=== PATIENT | male | born 1960 | race Caucasian/White ===

== ENCOUNTER 2019-07-24 07:03 | Day surgery (SDC) | payer OTHER ==
[~2019-07-24] VITALS: Ht 188 cm; Wt 114.3 kg
[~2019-07-24 07:03] MED LIST: BUPR300T34 PO; LISI10TA4 PO; NS 1,000 ML IV ONE
[2019-07-24] MEDS ORDERED: PROPOFOL 200 MG/20 ML VIAL As Ordered ONE ×3 (07:41→08:08)
--- NOTE | 2019-07-24 08:18 | ROOR ---
Patient Name: Mat Contreras Procedure Date: 07/24/2019 7:35 AM Date of : 1960 Age: 58 Room: [facility] Gender: Male Note Status: Finalized Procedure: Colonoscopy Indications: Screening for colorectal malignant neoplasm Providers: Nishant Meyers MD Referring MD: Patricia Parra DO Requesting Provider: Medicines: Monitored Anesthesia Care Complications: No immediate complications. Procedure: Pre-Anesthesia Assessment: - Prior to the procedure, a History and Physical was performed, and patient medications and allergies were reviewed. The patient is competent. The risks and benefits of the procedure and the sedation options and risks were discussed with the patient. All questions were answered and informed consent was obtained. Patient identification and proposed procedure were verified by the physician, the nurse and the anesthesiologist in the endoscopy suite. Mental Status Examination: alert and oriented. Airway Examination: normal oropharyngeal airway and neck mobility. Respiratory Examination: clear to auscultation. CV Examination: normal. Prophylactic Antibiotics: The patient does not require prophylactic antibiotics. Prior Anticoagulants: The patient has taken no previous anticoagulant or antiplatelet agents. ASA Grade Assessment: II - A patient with mild systemic disease. After reviewing the risks and benefits, the patient was deemed in satisfactory condition to undergo the procedure. The anesthesia plan was to use monitored anesthesia care (MAC). Immediately prior to administration of medications, the patient was re-assessed for adequacy to receive sedatives. The heart rate, respiratory rate, oxygen saturations, blood pressure, adequacy of pulmonary ventilation, and response to care were monitored throughout the procedure. The physical status of the patient was re-assessed after the procedure. The Colonoscope was introduced through the anus and advanced to the cecum, identified by appendiceal orifice and ileocecal valve. The colonoscopy was performed without difficulty. The patient tolerated the procedure well. The quality of the bowel preparation was good. Findings: The perianal and digital rectal examinations were normal. Four sessile polyps were found in the hepatic flexure and ascending colon. The polyps were diminutive in size. These polyps were removed with a cold snare. Resection and retrieval were complete. Estimated blood loss was minimal. Three sessile polyps were found in the transverse colon. The polyps were diminutive in size. These polyps were removed with a cold snare. Resection and retrieval were complete. Estimated blood loss was minimal. The retroflexed view of the distal rectum and anal verge was normal and showed no anal or rectal abnormalities. Impression: - Four diminutive polyps at the hepatic flexure and in the ascending colon, removed with a cold snare. Resected and retrieved. - Three diminutive polyps in the transverse colon, removed with a cold snare. Resected and retrieved. - The distal rectum and anal verge are normal on retroflexion view. Recommendation: - Discharge patient to home (ambulatory). - Repeat colonoscopy in 3 years for surveillance. Nishant Meyers MD Nishant Meyers MD 07/24/2019 8:17:47 AM Electronically signed by Nishant Meyers MD Number of Addenda: 0 Note Initiated On: 07/24/2019 7:35 AM Estimated Blood Loss: Estimated blood loss was minimal.
[2019-07-24 08:30] VITALS: BP 103/61
[2019-07-24] MEDS ORDERED: CETACAINE SPRAY 5GM As Ordered ONE (08:55)
== END 2019-07-24 08:42 | disposition home or self-care (01) ==
LOC: M OPP 07:03
PROVIDERS: ATTEND Surgery
DX: Z12.11 Encounter for screening for malignant neoplasm of colon (principal); D12.3 Benign neoplasm of transverse colon; D12.2 Benign neoplasm of ascending colon; K21.9 Gastro-esophageal reflux disease without esophagitis; S30.860D Insect bite (nonvenomous) of lower back and pelvis, subsequent encounter; I71.4 Abdominal aortic aneurysm, without rupture; I34.0 Nonrheumatic mitral (valve) insufficiency; F17.210 Nicotine dependence, cigarettes, uncomplicated; F12.10 Cannabis abuse, uncomplicated; Z79.899 Other long term (current) drug therapy

== ENCOUNTER 2022-05-07 09:32 | Emergency (ER) | payer OTHER ==
[~2022-05-07] VITALS: Ht 188 cm; Wt 107.1 kg
[~2022-05-07 09:32] MED LIST changes: -BUPR300T34 PO; +BUPR300T92 PO; +LISI10TA22 PO; -LISI10TA4 PO; -NS 1,000 ML IV ONE
[2022-05-07] MEDS ORDERED: CITA20TA7 (09:44)
[2022-05-07 14:17] VITALS: BP 136/77
== END 2022-05-07 14:39 | disposition home or self-care (01) ==
LOC: M ED 09:32
DX: S90.32XA Contusion of left foot, initial encounter (principal); W22.8XXA Striking against or struck by other objects, initial encounter; I10 Essential (primary) hypertension; F17.200 Nicotine dependence, unspecified, uncomplicated; Z79.811 Long term (current) use of aromatase inhibitors; Y92.009 Unspecified place in unspecified non-institutional (private) residence as the place of occurrence of the external cause; Y93.9 Activity, unspecified; Y99.9 Unspecified external cause status

== ENCOUNTER 2022-08-31 13:49 | Emergency (ER) | payer OTHER ==
[~2022-08-31] VITALS: Ht 188 cm; Wt 109.1 kg
[~2022-08-31 13:49] MED LIST changes: +CITA20TA7
[2022-08-31] MEDS ORDERED: ONDANSETRON 4MG 2ML VIAL IV ONE (14:00)
[2022-08-31] MEDS: MORPHINE 4 MG/ML 1ML VIAL IV PRN ×2 (14:19→15:13)
[2022-08-31 14:20] LABS: VENOUS BASE EXCESS -3.6 (-2.0-2.0); VENOUS HCO3 23.5 MEQ/L (23.0-27.0); VENOUS O2 SATURATION 65.2 % (60.0-80.0); VENOUS PARTIAL PRESSURE CO2 51.1 mmHg (38.0-50.0); VENOUS PARTIAL PRESSURE O2 36.9 mmHg (30.0-50.0); VENOUS PH 7.281 UNITS (7.330-7.430); VENOUS STANDARD HCO3 20.8 MEQ/L; VENOUS TOTAL CO2 25.1 MEQ/L (24.0-28.0)
[2022-08-31 14:41] LABS: BASO # 0.1 10^3/uL (0.0-0.2); BASO % 0.4 % (0.0-1.0); EOS # 0.1 10^3/uL (0.0-0.5); EOS % 0.3 % (0.0-3.0); HEMATOCRIT 35.9 % (42.0-52.0); HEMOGLOBIN 12.2 g/dl (13.5-17.5); LYMPH # 1.8 10^3/uL (1.5-5.0); LYMPH % 8.5 % (24.0-44.0); MEAN CORPUSCULAR HEMOGLOBIN 37.8 pg (27.0-33.0); MEAN CORPUSCULAR VOLUME 111.1 fl (80.0-96.0); MONO # 1.3 10^3/uL (0.0-0.8); MONO % 6.4 % (2.0-8.0); NEUTROPHILS # 17.2 10^3/uL (1.5-8.5); NEUTROPHILS % 82.1 % (36.0-66.0); PLATELET COUNT, AUTOMATED 143 10^3/uL (150-450); RED BLOOD COUNT 3.23 10^6/uL (4.30-6.10); WHITE BLOOD COUNT 20.9 10^3/uL (4.0-10.0)
[2022-08-31 14:49] LABS: BILIRUBIN,DIRECT 0.2 MG/DL (<0.4); INR 1.17; PROTHROMBIN TIME 15.1 SECONDS (12.5-14.5)
[2022-08-31 14:50] LABS: PARTIAL THROMBOPLASTIN TIME 27.3 SECONDS (24.8-34.2)
[2022-08-31 14:52] LABS: ALBUMIN 3.6 G/DL (3.2-5.2); BILIRUBIN,TOTAL 0.5 MG/DL (0.3-1.2); TOTAL PROTEIN 6.6 G/DL (5.7-8.2)
[2022-08-31] MEDS ORDERED: ISOVUE-370 76% 100ML VIAL As Ordered ONE (15:22)
[2022-08-31] MEDS: HYDROMORPHONE HCL 0.5 MG/ 0.5 ML SYRINGE (J1170 PER 1) IV PRN ×2 (16:11→17:21)
[2022-08-31 17:20] VITALS: BP 127/66
[2022-08-31 17:27] LABS: RSV AMPLIFICATION NEGATIVE (NEGATIVE)
== END 2022-08-31 17:35 | disposition short-term general hospital (02) ==
LOC: M ED 13:49
DX: S52.352A Displaced comminuted fracture of shaft of radius, left arm, initial encounter for closed fracture (principal); S32.502A Unspecified fracture of left pubis, initial encounter for closed fracture; S22.43XA Multiple fractures of ribs, bilateral, initial encounter for closed fracture; M47.812 Spondylosis without myelopathy or radiculopathy, cervical region; J93.9 Pneumothorax, unspecified; J90 Pleural effusion, not elsewhere classified; I49.3 Ventricular premature depolarization; I25.2 Old myocardial infarction; I10 Essential (primary) hypertension; W11.XXXA Fall on and from ladder, initial encounter; Z79.811 Long term (current) use of aromatase inhibitors; Z79.899 Other long term (current) drug therapy
CPT/HCPCS: 70450; 71045; 71260; 72125; 72170; 73110; 73502; 74177; 80047; 80076; 82150; 82803; 83690; 85025; 85610; 85730; 86850; 86900; 86901; 87631; 93005; 93041; 94760; 96374; 96375; 96376; 99285; J1170; J2270; J2405

== ENCOUNTER 2023-02-01 09:29 | Day surgery (SDC) | payer OTHER ==
[~2023-02-01] VITALS: Ht 188 cm; Wt 62.1 kg
[~2023-02-01 09:29] MED LIST changes: +AMIO200T49 PO; +ASPI-226 PO; -CITA20TA7; +CITA20TA7 PO; +FAMO40TA3 PO; +LISI5TAB11 PO; +NS 1,000 ML IV ONE; +TAMS1CAP17 PO
[2023-02-01] MEDS ORDERED: propofoL 200 MG/20 ML VIAL As Ordered ONE ×3 (10:19→10:52)
[2023-02-01 11:27] VITALS: BP 113/70
== END 2023-02-01 11:38 | disposition home or self-care (01) ==
LOC: M OPP 09:29
PROVIDERS: ATTEND Surgery
DX: Z12.11 Encounter for screening for malignant neoplasm of colon (principal); Z86.010 Personal history of colon polyps; D12.6 Benign neoplasm of colon, unspecified; Z79.82 Long term (current) use of aspirin; Z79.899 Other long term (current) drug therapy; F17.290 Nicotine dependence, other tobacco product, uncomplicated

== ENCOUNTER → 2023-09-07 | Outpatient (CLI) | payer OTHER ==
[~2023-09-07] MED LIST changes: +LIDOCAINE 1% MDV 20ML VIAL As Ordered ONE; +LISI20TA37; -NS 1,000 ML IV ONE
[2023-09-07 12:05] VITALS: TEMP 97.7
[2023-09-07 12:45] LABS: HEMATOCRIT 30.5 % (42.0-52.0); HEMOGLOBIN 10.5 g/dl (13.5-17.5); LYMPH # 0.8 10^3/uL (1.5-5.0); LYMPH % 38.3 % (24.0-44.0); MEAN CORPUSCULAR HEMOGLOBIN 38.9 pg (27.0-33.0); MEAN CORPUSCULAR HGB CONC 34.4 g/dl (32.0-36.5); MONO # 0.3 10^3/uL (0.0-0.8); MONO % 13.8 % (2.0-8.0); NEUTROPHILS % 45.4 % (36.0-66.0)
[2023-09-07 13:07] LABS: NEUTROPHILS # 0.9 10^3/uL (1.5-8.5); PLATELET COUNT, AUTOMATED 29 10^3/uL (150-450)
[2023-09-07 13:10] VITALS: BP 130/74; O2SAT 98
== END ==
LOC: M IRPRO 11:45
PROVIDERS: ATTEND Internal Medicine Hematology & Oncology
DX: D61.818 Other pancytopenia (principal)

== ENCOUNTER 2023-12-31 10:41 | Emergency (ER) | payer MEDICARE, OTHER ==
[2023-12-31] VITALS (7 sets, daily range): BP systolic 105–117; BP diastolic 57–65; TEMP 97.2–99; O2SAT 96–97
[~2023-12-31] VITALS: Ht 188 cm; Wt 109.1 kg
[~2023-12-31 10:41] MED LIST changes: +ACYC1TAB4 PO; +BUPR-597 PO; +BUPR150T12 PO; -BUPR300T92 PO; +FAMO20TA PO; +FLUC200T4 PO; +LEVO1TAB39 PO; -LIDOCAINE 1% MDV 20ML VIAL As Ordered ONE; -LISI20TA37; +LISI20TA37 PO; +NOXA1TAB PO
[2023-12-31 12:39] LABS: HEMATOCRIT 23.9 % (42.0-52.0); LYMPH # 0.8 10^3/uL (1.5-5.0); LYMPH % 57.7 % (24.0-44.0); MEAN CORPUSCULAR HEMOGLOBIN 32.5 pg (27.0-33.0); MEAN CORPUSCULAR HGB CONC 33.5 g/dl (32.0-36.5); MEAN CORPUSCULAR VOLUME 97.2 fl (80.0-96.0); MONO % 2.9 % (2.0-8.0); NEUTROPHILS % 26.3 % (36.0-66.0); RED BLOOD COUNT 2.46 10^6/uL (4.30-6.10); WHITE BLOOD COUNT 1.4 10^3/uL (4.0-10.0)
[2023-12-31 12:46] LABS: NEUTROPHILS # 0.4 10^3/uL (1.5-8.5)
[2023-12-31 12:47] LABS: PLATELET COUNT, AUTOMATED 14 10^3/uL (150-450)
[2023-12-31 12:51] LABS: INR 1.14; PARTIAL THROMBOPLASTIN TIME 25.5 SECONDS (24.8-34.2); PROTHROMBIN TIME 14.3 SECONDS (12.5-14.5)
[2023-12-31 13:00] LABS: BLOOD UREA NITROGEN 13 MG/DL (9-23); CALCIUM LEVEL 8.4 MG/DL (8.3-10.6); CARBON DIOXIDE LEVEL 25 MMOL/L (20-31); CHLORIDE LEVEL 107 MMOL/L (98-107); CREATININE FOR GFR 0.72 MG/DL (0.70-1.30); GLOMERULAR FILTRATION RATE > 60.0 (>49); GLUCOSE, FASTING 91 MG/DL (74-106); POTASSIUM SERUM 4.3 MMOL/L (3.5-5.1); SODIUM LEVEL 140 MMOL/L (136-145)
[2023-12-31] MEDS: diphenhydrAMINE 50MG/ML VIAL IV STA (13:53)
[2023-12-31] MEDS: methylPREDNISolone 40MG 1ML VIAL IV ONE (15:23)
[2024-01-01] MEDS ORDERED: FLUC200T4 PO (07:13)
[2024-01-24] MEDS ORDERED: AUGM125S2 PO (11:53)
[2024-01-24] MEDS ORDERED: NOXA1TAB PO (11:53)
[2024-01-24] MEDS ORDERED: FLOM0.4C39 PO (11:54)
== END 2023-12-31 19:53 | disposition home or self-care (01) ==
LOC: M ED 10:41
DX: D69.6 Thrombocytopenia, unspecified (principal); R04.0 Epistaxis; D46.9 Myelodysplastic syndrome, unspecified; I71.21 Aneurysm of the ascending aorta, without rupture; C18.9 Malignant neoplasm of colon, unspecified; F17.200 Nicotine dependence, unspecified, uncomplicated; Z79.1 Long term (current) use of non-steroidal anti-inflammatories (NSAID); Z79.83 Long term (current) use of bisphosphonates; Z79.899 Other long term (current) drug therapy; Z92.21 Personal history of antineoplastic chemotherapy
CPT/HCPCS: 80048; 85025; 85049; 85055; 85610; 85730; 86850; 86900; 86901; 96374; 96375; 99284; J1200; J2919; P9034

== ENCOUNTER 2024-01-08 17:49 | Emergency (ER) | payer MEDICARE, OTHER ==
[~2024-01-08] VITALS: Ht 188 cm; Wt 1.1 kg
[2024-01-08] MEDS: METOPROLOL 5 MG/5 ML VIAL IV SCH (18:20)
[2024-01-08 18:34] LABS: HEMATOCRIT 26.3 % (42.0-52.0); HEMOGLOBIN 8.8 g/dl (13.5-17.5); LYMPH # 0.2 10^3/uL (1.5-5.0); LYMPH % 34.7 % (24.0-44.0); MEAN CORPUSCULAR HEMOGLOBIN 31.7 pg (27.0-33.0); MEAN CORPUSCULAR HGB CONC 33.5 g/dl (32.0-36.5); MEAN CORPUSCULAR VOLUME 94.6 fl (80.0-96.0); NEUTROPHILS % 51.1 % (36.0-66.0); RED BLOOD COUNT 2.78 10^6/uL (4.30-6.10)
[2024-01-08 18:35] VITALS: BP 111/70
[2024-01-08 18:36] LABS: WHITE BLOOD COUNT 0.5 10^3/uL (4.0-10.0)
[2024-01-08 18:37] LABS: NEUTROPHILS # 0.3 10^3/uL (1.5-8.5); PLATELET COUNT, AUTOMATED 18 10^3/uL (150-450)
[2024-01-08 18:40] VITALS: TEMP 98
[2024-01-08 18:48] LABS: INR 1.18; PARTIAL THROMBOPLASTIN TIME 22.5 SECONDS (24.8-34.2); PROTHROMBIN TIME 14.7 SECONDS (12.5-14.5)
[2024-01-08 19:06] LABS: CPK CREATINE PHOSPHOKINASE < 15 U/L (46-171)
[2024-01-08 19:07] LABS: ALBUMIN 3.3 G/DL (3.2-5.2); ALKALINE PHOSPHATASE 61 U/L (46-116); ALT/SGPT 72 U/L (7.0-40); AST/SGOT 35 U/L (<34); BILIRUBIN,DIRECT 0.4 MG/DL (<0.4); BILIRUBIN,TOTAL 0.7 MG/DL (0.3-1.2); BLOOD UREA NITROGEN 22 MG/DL (9-23); CALCIUM LEVEL 8.7 MG/DL (8.3-10.6); CARBON DIOXIDE LEVEL 22 MMOL/L (20-31); CHLORIDE LEVEL 103 MMOL/L (98-107); CK-MB VALUE MASS < 1.0 NG/ML (<3.6); CREATININE FOR GFR 0.82 MG/DL (0.70-1.30); GLOMERULAR FILTRATION RATE > 60.0 (>49); GLUCOSE, FASTING 329 MG/DL (74-106); POTASSIUM SERUM 4.3 MMOL/L (3.5-5.1); SODIUM LEVEL 138 MMOL/L (136-145); TOTAL PROTEIN 5.6 G/DL (5.7-8.2)
[2024-01-08 19:09] LABS: THYROID STIMULATING HORMONE 0.668 uIU/ML (0.55-4.78)
[2024-01-08 20:16] LABS: CK-MB VALUE MASS < 1.0 NG/ML (<3.6)
[2024-01-08 20:18] LABS: CPK CREATINE PHOSPHOKINASE 27 U/L (46-171)
[2024-01-08 20:35] VITALS: BP 111/65; O2SAT 97
[2024-01-08] MEDS ORDERED: TOPR25TA PO (20:46)
== END 2024-01-08 21:11 | disposition home or self-care (01) ==
LOC: M ED 17:49
DX: I48.91 Unspecified atrial fibrillation (principal); F17.210 Nicotine dependence, cigarettes, uncomplicated; Z79.2 Long term (current) use of antibiotics; Z79.899 Other long term (current) drug therapy

== ENCOUNTER 2024-01-13 08:22 | Inpatient (IN) | payer MEDICARE, OTHER ==
[2024-01-13] VITALS (25 sets, daily range): BP systolic 98–139; BP diastolic 56–74; TEMP 96.9–99.8; O2SAT 95–99
[~2024-01-13] VITALS: Ht 188 cm; Wt 106.2 kg
[~2024-01-13 08:22] MED LIST changes: -BUPR-597 PO; +BUPR300T92 PO; +TOPR25TA PO
[2024-01-13] MEDS: PROPARACAINE 0.5% OPHTH SOL 15ML OS ONE (10:25)
[2024-01-13] MEDS: FLUORESCEIN OPHTH 1MG STRIP OS ONE (10:25)
[2024-01-13 11:33] LABS: EOS # 0.1 10^3/uL (0.0-0.5); EOS % 5.6 % (0.0-3.0); HEMATOCRIT 21.6 % (42.0-52.0); HEMOGLOBIN 7.2 g/dl (13.5-17.5); LYMPH % 69.9 % (24.0-44.0); MEAN CORPUSCULAR HEMOGLOBIN 31.6 pg (27.0-33.0); MEAN CORPUSCULAR HGB CONC 33.3 g/dl (32.0-36.5); MEAN CORPUSCULAR VOLUME 94.7 fl (80.0-96.0); MONO % 1.4 % (2.0-8.0); NEUTROPHILS % 18.2 % (36.0-66.0); RED BLOOD COUNT 2.28 10^6/uL (4.30-6.10)
[2024-01-13 11:34] LABS: NEUTROPHILS # 0.3 10^3/uL (1.5-8.5)
[2024-01-13 11:35] LABS: PLATELET COUNT, AUTOMATED 12 10^3/uL (150-450)
[2024-01-13 11:36] LABS: WHITE BLOOD COUNT 1.4 10^3/uL (4.0-10.0)
[2024-01-13 11:40] LABS: APPEARANCE, URINE CLOUDY (CLEAR); BACTERIA, URINE AUTO NEGATIVE (NEGATIVE); BILIRUBIN, URINE AUTO NEGATIVE (NEGATIVE); BLOOD, URINE BLOOD NEGATIVE (NEGATIVE); CALCIUM OXALATE CRYSTALS SMALL; COLOR, URINE YELLOW (YELLOW); GLUCOSE, URINE (UA) AUTO NEGATIVE (NEGATIVE); KETONE, URINE AUTO NEGATIVE (NEGATIVE); LEUKOCYTE ESTERASE, URINE AUTO NEGATIVE (NEGATIVE); MUCUS, URINE SMALL (NEGATIVE); NITRITE, URINE AUTO NEGATIVE (NEGATIVE); PROTEIN, URINE AUTO NEGATIVE (NEGATIVE); RBC, URINE AUTO 0 /HPF (0-3); SPECIFIC GRAVITY URINE AUTO 1.021 (1.002-1.035); SQUAMOUS EPITHELIAL CELL UR AU 3 /HPF (0-6); UROBILINOGEN, URINE AUTO 0.2 mg/dL (0.0-2.0); WBC, URINE AUTO 1 /HPF (0-3)
[2024-01-13 11:42] LABS: ERYTHROCYTE SEDIMENTATION RATE 3 mm/hr (0-20)
[2024-01-13 11:46] LABS: INR 1.14; PARTIAL THROMBOPLASTIN TIME 22.9 SECONDS (24.8-34.2); PROTHROMBIN TIME 14.3 SECONDS (12.5-14.5)
[2024-01-13 11:56] LABS: ALBUMIN 3.1 G/DL (3.2-5.2); ALKALINE PHOSPHATASE 42 U/L (46-116); ALT/SGPT 66 U/L (7.0-40); AST/SGOT 25 U/L (<34); BILIRUBIN,TOTAL 0.8 MG/DL (0.3-1.2); BLOOD UREA NITROGEN 15 MG/DL (9-23); CALCIUM LEVEL 7.8 MG/DL (8.3-10.6); CARBON DIOXIDE LEVEL 28 MMOL/L (20-31); CHLORIDE LEVEL 106 MMOL/L (98-107); CREATININE FOR GFR 0.81 MG/DL (0.70-1.30); GLOMERULAR FILTRATION RATE > 60.0 (>49); GLUCOSE, FASTING 111 MG/DL (74-106); POTASSIUM SERUM 3.4 MMOL/L (3.5-5.1); SODIUM LEVEL 141 MMOL/L (136-145); TOTAL PROTEIN 5.2 G/DL (5.7-8.2)
[2024-01-13] MEDS ORDERED: ISOVUE-370 76% 100ML VIAL As Ordered ONE (12:10)
[2024-01-13] MEDS: NS 1,000 ML IV ONE (12:26)
[2024-01-13] MEDS: AMPICILLIN SOD/SULBACTAM SOD 3 GM in D5W MINI-BAG PLUS 100 ML IV ONE (13:00)
[2024-01-13] MEDS ORDERED: LEVO1TAB39 PO (14:23)
[2024-01-13] MEDS ORDERED: ACYC1TAB4 PO (14:23)
[2024-01-13] MEDS ORDERED: FLUC200T4 PO (14:23)
[2024-01-13] MEDS ORDERED: FAMO20TA PO (14:23)
[2024-01-13] MEDS ORDERED: METO1TAB32 PO (14:23)
[2024-01-13] MEDS ORDERED: HOME MED LIST COMPLETE! XX SCH (14:25)
[2024-01-13] MEDS: diphenhydrAMINE 25MG CAP PO ONE (15:10)
[2024-01-13] MEDS: dexAMETHasone 4 MG TAB PO ONE (15:10)
[2024-01-13] MEDS ORDERED: ACETAMINOPHEN TAB 650MG DOSE (2X325MG) PO PRN ×2 (16:55→21:00)
[2024-01-13] MEDS: cefTRIAXone SOD 2 GM in D5W MINI-BAG PLUS 50 ML IV SCH (17:33)
[2024-01-13] MEDS: METOPROLOL TART 25 MG TABLET PO SCH (17:34)
[2024-01-13] MEDS: PERCOCET 5MG/325MG TAB PO ONE (17:35)
[2024-01-13] MEDS: POTASSIUM CHLORIDE 10MEQ SR TABLET PO ONE (17:35)
[2024-01-13] MEDS: LACTOBACILLUS ACIDOPHILUS CAP (BACID) PO SCH (18:00)
[2024-01-13] MEDS: dexAMETHasone 20MG/5ML VIAL IV ONE ×2 (18:37→23:17)
[2024-01-13] MEDS: FAMOTIDINE IV BAG 20 MG in IV 1 EA IV SCH (18:37)
[2024-01-13] MEDS: diphenhydrAMINE 50MG/ML VIAL IV ONE ×2 (18:37→23:16)
[2024-01-13] MEDS ORDERED: FAMOTIDINE IV BAG 20 MG in IV 1 EA IV SCH (19:00)
[2024-01-13] MEDS: FILGRASTIM 300MCG 0.5ML SYRINGE **SC ADMINISTRATION ONLY SC SCH (20:00)
[2024-01-13] MEDS: LACRILUBE (AKWA TEARS) OPHTH OINT 3.5GM OS SCH (20:56)
[2024-01-13] MEDS: ARTIFICIAL TEARS DROPS 15ML BTL (VISINE DRY RELIEF) OS SCH (20:57)
[2024-01-13 21:04] LABS: MEAN CORPUSCULAR HEMOGLOBIN 31.9 pg (27.0-33.0); MEAN CORPUSCULAR VOLUME 96.8 fl (80.0-96.0); RED BLOOD COUNT 2.16 10^6/uL (4.30-6.10)
[2024-01-13 21:05] LABS: WHITE BLOOD COUNT 0.7 10^3/uL (4.0-10.0)
[2024-01-13 21:07] LABS: HEMOGLOBIN 6.9 g/dl (13.5-17.5)
[2024-01-13 21:08] LABS: HEMATOCRIT 20.9 % (42.0-52.0); PLATELET COUNT, AUTOMATED 12 10^3/uL (150-450)
[2024-01-13] MEDS: metroNIDAZOLE 500 MG in IV 1 EA IV SCH (21:28)
[2024-01-13] MEDS: CALCIUM GLUCONATE 1,000 MG in D5W MINI-BAG PLUS 100 ML IV ONE (21:29)
[2024-01-13] MEDS: ACYCLOVIR 200 MG CAPSULE PO SCH (21:30)
[2024-01-13] MEDS: PERCOCET 5MG/325MG TAB PO PRN (22:12)
[2024-01-13 22:23] LABS: POTASSIUM SERUM 4.6 MMOL/L (3.5-5.1)
[2024-01-14] VITALS (27 sets, daily range): BP systolic 117–148; BP diastolic 60–77; TEMP 97–98.7; O2SAT 88–99
[2024-01-14] MEDS: PERCOCET 5MG/325MG TAB PO PRN (05:05)
[2024-01-14 05:36] LABS: EOS # 0.1 10^3/uL (0.0-0.5); EOS % 14.3 % (0.0-3.0); HEMOGLOBIN 8.7 g/dl (13.5-17.5); LYMPH # 0.2 10^3/uL (1.5-5.0); LYMPH % 37.5 % (24.0-44.0); MEAN CORPUSCULAR HEMOGLOBIN 31.1 pg (27.0-33.0); MEAN CORPUSCULAR HGB CONC 33.5 g/dl (32.0-36.5); MEAN CORPUSCULAR VOLUME 92.9 fl (80.0-96.0); MONO % 1.8 % (2.0-8.0); NEUTROPHILS % 37.5 % (36.0-66.0)
[2024-01-14 05:37] LABS: NEUTROPHILS # 0.2 10^3/uL (1.5-8.5); WHITE BLOOD COUNT 0.6 10^3/uL (4.0-10.0)
[2024-01-14 05:38] LABS: PLATELET COUNT, AUTOMATED 16 10^3/uL (150-450)
[2024-01-14 05:58] LABS: BLOOD UREA NITROGEN 14 MG/DL (9-23); CALCIUM LEVEL 8.2 MG/DL (8.3-10.6); CARBON DIOXIDE LEVEL 26 MMOL/L (20-31); CHLORIDE LEVEL 106 MMOL/L (98-107); CREATININE FOR GFR 0.69 MG/DL (0.70-1.30); GLOMERULAR FILTRATION RATE > 60.0 (>49); GLUCOSE, FASTING 239 MG/DL (74-106); POTASSIUM SERUM 4.5 MMOL/L (3.5-5.1); SODIUM LEVEL 138 MMOL/L (136-145)
[2024-01-14] MEDS ORDERED: FAMOTIDINE 20MG/2ML VIAL IVP ONE (06:05)
[2024-01-14] MEDS ORDERED: diphenhydrAMINE 50MG/ML VIAL IV ONE (06:05)
[2024-01-14] MEDS ORDERED: RISATAB3 PO (07:40)
[2024-01-14] MEDS ORDERED: CEFD1CAP9 PO (07:40)
[2024-01-14] MEDS ORDERED: METR-265 PO (07:45)
[2024-01-14] MEDS ORDERED: OXYC1TAB23 PO (07:45)
[2024-01-14] MEDS: diphenhydrAMINE 50MG/ML VIAL IV ONE (08:57)
[2024-01-14] MEDS: FAMOTIDINE 20MG/2ML VIAL IVP ONE (08:57)
[2024-01-14] MEDS: buPROPion **XL** TABLET 150MG (WELLBUTRIN XL) PO SCH (08:58)
[2024-01-14] MEDS: FLUCONAZOLE 100 MG TAB PO SCH (08:58)
[2024-01-14] MEDS ORDERED: FAMOTIDINE 20 MG TAB PO SCH (09:00)
[2024-01-14] MEDS: FAMOTIDINE 20 MG TAB PO SCH (09:04)
== END 2024-01-14 13:46 | disposition home or self-care (01) | DRG 603 ==
LOC: M ED 08:22 → M ED INP 14:31 → M PCU 16:11
PROVIDERS: ADMIT General Practice; ATTEND General Practice
PROC: 30233N1 Transfusion of Nonautologous Red Blood Cells into Peripheral Vein, Percutaneous Approach (ICD-10-PCS; principal; 2024-01-13)
PROC: 30233R1 Transfusion of Nonautologous Platelets into Peripheral Vein, Percutaneous Approach (ICD-10-PCS; 2024-01-13)
DX: L03.213 Periorbital cellulitis (principal); D62 Acute posthemorrhagic anemia; D61.818 Other pancytopenia; D46.9 Myelodysplastic syndrome, unspecified; E87.6 Hypokalemia; F32.A Depression, unspecified; E66.9 Obesity, unspecified; Z68.30 Body mass index [BMI] 30.0-30.9, adult; N40.0 Benign prostatic hyperplasia without lower urinary tract symptoms; D70.9 Neutropenia, unspecified; R04.0 Epistaxis; I48.0 Paroxysmal atrial fibrillation; I71.21 Aneurysm of the ascending aorta, without rupture; Z86.16 Personal history of COVID-19; L40.8 Other psoriasis; I09.9 Rheumatic heart disease, unspecified; Z87.891 Personal history of nicotine dependence; E83.51 Hypocalcemia; Z79.899 Other long term (current) drug therapy; F10.10 Alcohol abuse, uncomplicated

== ENCOUNTER 2024-01-17 09:11 | Emergency (ER) | payer MEDICARE, OTHER ==
[~2024-01-17] VITALS: Ht 188 cm; Wt 109.1 kg
[~2024-01-17 09:11] MED LIST changes: +BUPR-597 PO; -BUPR300T92 PO; +CEFD1CAP9 PO; +METO1TAB32 PO; +METR-265 PO; +OXYC1TAB23 PO; +RISATAB3 PO
[2024-01-17 11:42] LABS: HEMOGLOBIN 10.2 g/dl (13.5-17.5); MEAN CORPUSCULAR HEMOGLOBIN 30.9 pg (27.0-33.0); MEAN CORPUSCULAR HGB CONC 32.9 g/dl (32.0-36.5); MEAN CORPUSCULAR VOLUME 93.9 fl (80.0-96.0); WHITE BLOOD COUNT 1.9 10^3/uL (4.0-10.0)
[2024-01-17] MEDS: cefTRIAXone SOD 2 GM in D5W MINI-BAG PLUS 50 ML IV ONE (11:42)
[2024-01-17 11:50] LABS: PLATELET COUNT, AUTOMATED 11 10^3/uL (150-450)
[2024-01-17 12:12] LABS: BLOOD UREA NITROGEN 16 MG/DL (9-23); CALCIUM LEVEL 8.6 MG/DL (8.3-10.6); CARBON DIOXIDE LEVEL 29 MMOL/L (20-31); CHLORIDE LEVEL 101 MMOL/L (98-107); GLOMERULAR FILTRATION RATE > 60.0 (>49); GLUCOSE, FASTING 91 MG/DL (74-106); POTASSIUM SERUM 4.4 MMOL/L (3.5-5.1); SODIUM LEVEL 138 MMOL/L (136-145)
[2024-01-17] MEDS ORDERED: ISOVUE-370 76% 100ML VIAL As Ordered ONE (12:16)
[2024-01-17] MEDS: VANCOMYCIN HCL 1,000 MG, VIAL MATE ADAPTER 1 EACH in D5W 250 ML IV ONE (12:36)
[2024-01-17 12:40] LABS: ATYPICAL LYMPH 8 % (0-5); BASOPHILS 8 % (0-1); LYMPHOCYTES 54 % (16-44); MONOCYTES 2 % (0-5); NEUTROPHILS 22 % (28-66); NUCLEATED RED BLOOD CELL 8 % (0-0); PLATELET ESTIMATE MARKED DECREASE (NORMAL)
[2024-01-17 12:42] LABS: ANISOCYTOSIS 2+; POLYCHROMASIA 1+
[2024-01-17 12:43] LABS: HYPOCHROMASIA 1+; POIKILOCYTOSIS 1+
[2024-01-17 12:44] LABS: OVALOCYTES 1+
[2024-01-17] MEDS: PERCOCET 5MG/325MG TAB PO ONE (12:47)
[2024-01-17 13:04] LABS: ERYTHROCYTE SEDIMENTATION RATE 23 mm/hr (0-20)
[2024-01-17] MEDS ORDERED: METR-265 PO (13:33)
[2024-01-17] MEDS ORDERED: CEFD1CAP9 PO (13:33)
[2024-01-17] MEDS ORDERED: RISATAB3 PO (13:33)
[2024-01-17] MEDS ORDERED: OXYC1TAB23 PO (13:33)
[2024-01-17] MEDS ORDERED: MILKSUS3 PO (13:33)
[2024-01-17] MEDS ORDERED: HOME MED LIST COMPLETE! XX SCH (13:35)
[2024-01-17] MEDS: diphenhydrAMINE 50MG/ML VIAL IV ONE (14:25)
[2024-01-17] MEDS: dexAMETHasone 20MG/5ML VIAL IV ONE (14:25)
[2024-01-17] MEDS: FAMOTIDINE 20MG/2ML VIAL IVP ONE (14:25)
[2024-01-17 15:08] VITALS: BP 116/61; TEMP 99.3; O2SAT 97
[2024-01-17 15:32] VITALS: BP 115/59; TEMP 97.9; O2SAT 97
[2024-01-17] MEDS ORDERED: MOM 30ML SUSPENSION UDC PO PRN (16:15)
[2024-01-17] MEDS ORDERED: PERCOCET 5MG/325MG TAB PO PRN (16:15)
[2024-01-17] MEDS ORDERED: ACETAMINOPHEN TAB 650MG DOSE (2X325MG) PO PRN (16:15)
[2024-01-17] MEDS ORDERED: MAALOX 30 ML SUSP *UDC PO PRN (16:15)
[2024-01-17 17:10] VITALS: BP 124/59; TEMP 99.5; O2SAT 96
[2024-01-17] MEDS: metroNIDAZOLE 500 MG in IV 1 EA IV SCH (17:23)
[2024-01-17] MEDS: LACTOBACILLUS ACIDOPHILUS CAP (BACID) PO SCH (17:23)
[2024-01-17 20:42] VITALS: BP 133/70; TEMP 98.3; O2SAT 95
[2024-01-17] MEDS ORDERED: DOCUSATE SODIUM 100MG CAPSULE PO SCH (21:00)
[2024-01-17] MEDS ORDERED: FAMOTIDINE 20 MG TAB PO SCH (21:00)
[2024-01-18] MEDS ORDERED: METOPROLOL SUCC *XL* 12.5MG PER 1/2 TAB (TopROL *XL*) PO SCH (09:00)
[2024-01-18] MEDS ORDERED: buPROPion **XL** TABLET 150MG (WELLBUTRIN XL) PO SCH (09:00)
[2024-01-24] MEDS ORDERED: NOXA1TAB PO (11:53)
[2024-01-24] MEDS ORDERED: AUGM125S2 PO (11:53)
[2024-01-24] MEDS ORDERED: FLOM0.4C39 PO (11:54)
[2024-02-05] MEDS ORDERED: AUGM500T34 PO (09:31)
[2024-03-08] MEDS ORDERED: CARB15DR37 OP (08:51)
[2024-03-08] MEDS ORDERED: POTA-151 PO (08:52)
[2024-03-08] MEDS ORDERED: LIDO5DIS41 TOP (08:52)
[2024-03-08] MEDS ORDERED: VORI200T PO (08:53)
[2024-04-08] MEDS ORDERED: METO1TAB87 PO (09:35)
[2024-04-12] MEDS ORDERED: ESSE250T PO (10:03)
[2024-04-12] MEDS ORDERED: ORAL0.1P MT (13:28)
== END 2024-01-17 20:46 | disposition short-term general hospital (02) ==
LOC: M ED 09:11
DX: J01.00 Acute maxillary sinusitis, unspecified (principal); D46.9 Myelodysplastic syndrome, unspecified; Z86.79 Personal history of other diseases of the circulatory system; Z79.1 Long term (current) use of non-steroidal anti-inflammatories (NSAID); Z79.2 Long term (current) use of antibiotics; Z79.899 Other long term (current) drug therapy; Z79.82 Long term (current) use of aspirin

== ENCOUNTER 2024-03-11 09:37 | Inpatient (IN) | payer MEDICARE, OTHER ==
[2024-03-11] VITALS (9 sets, daily range): BP systolic 101–123; BP diastolic 64–85; TEMP 96.9–98.1; O2SAT 95–100
[~2024-03-11] VITALS: Ht 188 cm; Wt 98.6 kg
[~2024-03-11 09:37] MED LIST changes: +AUGM125S2 PO; +AUGM500T34 PO; +CARB15DR37 OP; +FLOM0.4C39 PO; +LIDO5DIS41 TOP; +MILKSUS3 PO; +POTA-151 PO; +VORI200T PO
[2024-03-11] MEDS: NS 1,000 ML IV ONE ×2 (09:50→17:39)
[2024-03-11] MEDS ORDERED: METO1TAB87 PO (10:01)
[2024-03-11] MEDS ORDERED: POTA-298 PO (10:01)
[2024-03-11] MEDS ORDERED: VORI200T PO (10:07)
[2024-03-11 11:34] LABS: CK-MB VALUE MASS < 1.0 NG/ML (<3.6); LIPASE 45 U/L (12-53)
[2024-03-11 11:36] LABS: AMYLASE 54 U/L (30-118)
[2024-03-11 11:37] LABS: ALBUMIN 2.9 G/DL (3.2-5.2); ALKALINE PHOSPHATASE 98 U/L (46-116); ALT/SGPT 53 U/L (7.0-40); AST/SGOT 50 U/L (<34); BILIRUBIN,DIRECT 0.3 MG/DL (<0.4); BILIRUBIN,TOTAL 0.7 MG/DL (0.3-1.2); BLOOD UREA NITROGEN 19 MG/DL (9-23); CALCIUM LEVEL 8.7 MG/DL (8.3-10.6); CARBON DIOXIDE LEVEL 25 MMOL/L (20-31); CHLORIDE LEVEL 108 MMOL/L (98-107); CPK CREATINE PHOSPHOKINASE < 15 U/L (46-171); CREATININE FOR GFR 0.72 MG/DL (0.70-1.30); GLOMERULAR FILTRATION RATE > 60.0 (>49); GLUCOSE, FASTING 110 MG/DL (74-106); POTASSIUM SERUM 4.5 MMOL/L (3.5-5.1); SODIUM LEVEL 141 MMOL/L (136-145); TOTAL PROTEIN 5.5 G/DL (5.7-8.2)
[2024-03-11] MEDS: ACETAMINOPHEN TAB 650MG DOSE (2X325MG) PO ONE (11:50)
[2024-03-11] MEDS: dexAMETHasone 20MG/5ML VIAL IV ONE (11:50)
[2024-03-11] MEDS: diphenhydrAMINE 25MG CAP PO ONE ×2 (11:51→14:35)
[2024-03-11] MEDS: FAMOTIDINE IV BAG 20 MG in IV 1 EA IV ONE (11:51)
[2024-03-11 12:26] LABS: PROCALCITONIN 0.34 ng/ml
[2024-03-11 15:52] LABS: CK-MB VALUE MASS < 1.0 NG/ML (<3.6)
[2024-03-11 15:54] LABS: CPK CREATINE PHOSPHOKINASE < 15 U/L (46-171)
[2024-03-11 16:57] LABS: RSV AMPLIFICATION NEGATIVE (NEGATIVE)
[2024-03-11] MEDS: NS 700 ML IV ONE (17:10)
[2024-03-11] MEDS: PIPERACILLIN/TAZOBACTAM SOD 4.5 GM in D5W MINI-BAG PLUS 50 ML IV ONE (17:38)
[2024-03-11] MEDS ORDERED: dilTIAZem 25MG/5ML VIAL As Ordered ONE (19:38)
[2024-03-11] MEDS: dilTIAZem 25MG/5ML VIAL IV STA ×2 (19:40→19:45)
[2024-03-11] MEDS: METOPROLOL TART 25 MG TABLET PO ONE (21:06)
[2024-03-11] MEDS: CEFEPIME HCL 2 GM in D5W MINI-BAG PLUS 50 ML IV SCH (23:02)
[2024-03-11] MEDS ORDERED: ALPR0.25 PO (23:16)
[2024-03-11] MEDS ORDERED: REFR0.1D OU (23:16)
[2024-03-11] MEDS ORDERED: SODI88SP NARES ×2 (23:16)
[2024-03-11] MEDS ORDERED: HOME MED LIST COMPLETE! XX SCH (23:20)
[2024-03-12] VITALS (12 sets, daily range): BP systolic 108–154; BP diastolic 53–86; TEMP 97–98.7; O2SAT 92–99
[2024-03-12 05:58] LABS: LYMPH # 0.5 10^3/uL (1.5-5.0); LYMPH % 22.2 % (24.0-44.0); MEAN CORPUSCULAR HEMOGLOBIN 29.6 pg (27.0-33.0); MEAN CORPUSCULAR HGB CONC 32.4 g/dl (32.0-36.5); MEAN CORPUSCULAR VOLUME 91.5 fl (80.0-96.0); MONO # 0.8 10^3/uL (0.0-0.8); MONO % 39.6 % (2.0-8.0); RED BLOOD COUNT 2.23 10^6/uL (4.30-6.10); WHITE BLOOD COUNT 2.1 10^3/uL (4.0-10.0)
[2024-03-12 06:04] LABS: HEMATOCRIT 20.4 % (42.0-52.0)
[2024-03-12 06:07] LABS: NEUTROPHILS # 0.5 10^3/uL (1.5-8.5)
[2024-03-12 06:08] LABS: HEMOGLOBIN 6.6 g/dl (13.5-17.5); PLATELET COUNT, AUTOMATED 13 10^3/uL (150-450)
[2024-03-12 06:39] LABS: ALBUMIN 2.6 G/DL (3.2-5.2); ALKALINE PHOSPHATASE 91 U/L (46-116); ALT/SGPT 43 U/L (7.0-40); AST/SGOT 37 U/L (<34); BILIRUBIN,TOTAL 0.7 MG/DL (0.3-1.2); BLOOD UREA NITROGEN 15 MG/DL (9-23); CARBON DIOXIDE LEVEL 24 MMOL/L (20-31); CHLORIDE LEVEL 111 MMOL/L (98-107); CREATININE FOR GFR 0.62 MG/DL (0.70-1.30); GLOMERULAR FILTRATION RATE > 60.0 (>49); GLUCOSE, FASTING 128 MG/DL (74-106); POTASSIUM SERUM 3.9 MMOL/L (3.5-5.1); SODIUM LEVEL 142 MMOL/L (136-145); TOTAL PROTEIN 4.9 G/DL (5.7-8.2)
[2024-03-12] MEDS ORDERED: ALPRAZolam 0.25 MG TAB PO PRN (08:15)
[2024-03-12] MEDS: SODIUM CHLORIDE NASAL 0.65% SPRAY BTL (OCEAN) PRN (09:56)
[2024-03-12] MEDS: ACYCLOVIR 200 MG CAPSULE PO SCH (09:57)
[2024-03-12] MEDS: VORICONAZOLE 200MG TABLET (VFEND) PO SCH (09:57)
[2024-03-12] MEDS: POTASSIUM CHLORIDE 10MEQ SR TABLET PO SCH (09:57)
[2024-03-12] MEDS: TAMSULOSIN 0.4 MG CAP PO SCH (09:58)
[2024-03-12] MEDS: FAMOTIDINE 20 MG TAB PO SCH (09:58)
[2024-03-12] MEDS: METOPROLOL TART 25 MG TABLET PO SCH (09:58)
[2024-03-12] MEDS: buPROPion **XL** TABLET 150MG (WELLBUTRIN XL) PO SCH (09:58)
[2024-03-12] MEDS: ARTIFICIAL TEARS DROPS 15ML BTL (VISINE DRY RELIEF) OU SCH (11:18)
[2024-03-12] MEDS: FAMOTIDINE 20MG/2ML VIAL IV ONE (12:39)
[2024-03-12] MEDS: ACETAMINOPHEN TAB 650MG DOSE (2X325MG) PO ONE (12:39)
[2024-03-12] MEDS: dexAMETHasone 20MG/5ML VIAL IV ONE (12:39)
[2024-03-12] MEDS: diphenhydrAMINE 25MG CAP PO ONE (12:39)
[2024-03-13] VITALS (20 sets, daily range): BP systolic 110–149; BP diastolic 65–86; TEMP 96.5–98.6; O2SAT 95–99
[2024-03-13 03:43] LABS: HEMATOCRIT 23.3 % (42.0-52.0); HEMOGLOBIN 7.5 g/dl (13.5-17.5); MEAN CORPUSCULAR HEMOGLOBIN 29.8 pg (27.0-33.0); MEAN CORPUSCULAR HGB CONC 32.2 g/dl (32.0-36.5); MEAN CORPUSCULAR VOLUME 92.5 fl (80.0-96.0); RED BLOOD COUNT 2.52 10^6/uL (4.30-6.10); WHITE BLOOD COUNT 1.3 10^3/uL (4.0-10.0)
[2024-03-13 03:48] LABS: PLATELET COUNT, AUTOMATED 9 10^3/uL (150-450)
[2024-03-13 03:58] LABS: BLOOD UREA NITROGEN 18 MG/DL (9-23); CALCIUM LEVEL 7.7 MG/DL (8.3-10.6); CARBON DIOXIDE LEVEL 22 MMOL/L (20-31); CHLORIDE LEVEL 114 MMOL/L (98-107); CREATININE FOR GFR 0.66 MG/DL (0.70-1.30); GLOMERULAR FILTRATION RATE > 60.0 (>49); GLUCOSE, FASTING 137 MG/DL (74-106); MAGNESIUM LEVEL 1.5 MG/DL (1.8-2.4); POTASSIUM SERUM 4.2 MMOL/L (3.5-5.1); SODIUM LEVEL 144 MMOL/L (136-145)
[2024-03-13] MEDS: ACETAMINOPHEN TAB 650MG DOSE (2X325MG) PO ONE ×2 (04:36→21:52)
[2024-03-13] MEDS: dexAMETHasone 20MG/5ML VIAL IV PRN (04:37)
[2024-03-13] MEDS: diphenhydrAMINE 50MG/ML VIAL IV PRN (04:37)
[2024-03-13] MEDS: FAMOTIDINE 20MG/2ML VIAL IVP PRN (04:37)
[2024-03-13] MEDS: MAG SULF 1GM/100ML (MAG RUN) 1 GM in IV 1 EA IV ONE (05:53)
[2024-03-13] MEDS: MAG SULF 1GM/100ML (MAG RUN) 1 GM in IV 1 EA IV SCH (09:02)
[2024-03-13] MEDS: FILGRASTIM 300MCG 0.5ML SYRINGE **SC ADMINISTRATION ONLY SC SCH (10:15)
[2024-03-13] MEDS: ACETAMINOPHEN TAB 650MG DOSE (2X325MG) PO PRN (10:16)
[2024-03-13] MEDS: dilTIAZem 25MG/5ML VIAL IV STA (11:30)
[2024-03-13 18:49] LABS: HEMATOCRIT 24.4 % (42.0-52.0); MEAN CORPUSCULAR HEMOGLOBIN 29.9 pg (27.0-33.0); MEAN CORPUSCULAR HGB CONC 32.8 g/dl (32.0-36.5); RED BLOOD COUNT 2.68 10^6/uL (4.30-6.10); WHITE BLOOD COUNT 2.5 10^3/uL (4.0-10.0)
[2024-03-13 18:55] LABS: PLATELET COUNT, AUTOMATED 12 10^3/uL (150-450)
[2024-03-13] MEDS: dexAMETHasone 4 MG TAB PO ONE (21:51)
[2024-03-13] MEDS: diphenhydrAMINE 25MG CAP PO ONE (21:51)
[2024-03-14] VITALS (16 sets, daily range): BP systolic 132–159; BP diastolic 62–86; TEMP 96.8–98.6; O2SAT 96–100
[2024-03-14] MEDS ORDERED: FAMOTIDINE 20MG/2ML VIAL IVP PRN (07:00)
[2024-03-14 08:09] LABS: BASO % 0.5 % (0.0-1.0); HEMATOCRIT 24.3 % (42.0-52.0); LYMPH # 0.8 10^3/uL (1.5-5.0); MEAN CORPUSCULAR HGB CONC 32.9 g/dl (32.0-36.5); MONO # 0.4 10^3/uL (0.0-0.8); NEUTROPHILS % 16.1 % (36.0-66.0); RED BLOOD COUNT 2.67 10^6/uL (4.30-6.10); WHITE BLOOD COUNT 1.9 10^3/uL (4.0-10.0)
[2024-03-14 08:12] LABS: NEUTROPHILS # 0.3 10^3/uL (1.5-8.5)
[2024-03-14 08:13] LABS: PLATELET COUNT, AUTOMATED 7 10^3/uL (150-450)
[2024-03-14 08:42] LABS: BLOOD UREA NITROGEN 17 MG/DL (9-23); CALCIUM LEVEL 7.9 MG/DL (8.3-10.6); CARBON DIOXIDE LEVEL 23 MMOL/L (20-31); CHLORIDE LEVEL 112 MMOL/L (98-107); CREATININE FOR GFR 0.64 MG/DL (0.70-1.30); GLOMERULAR FILTRATION RATE > 60.0 (>49); GLUCOSE, FASTING 120 MG/DL (74-106); MAGNESIUM LEVEL 1.8 MG/DL (1.8-2.4); POTASSIUM SERUM 4.2 MMOL/L (3.5-5.1); SODIUM LEVEL 143 MMOL/L (136-145)
[2024-03-14] MEDS: amLODIPine 5 MG TAB PO SCH (08:57)
[2024-03-14] MEDS ORDERED: diphenhydrAMINE 25MG CAP PO PRN ×2 (09:55→10:20)
[2024-03-14] MEDS ORDERED: dexAMETHasone 20MG/5ML VIAL IV PRN (09:55)
[2024-03-14] MEDS: CALCIUM CARBONATE 500 MG CHEW U/D PO PRN (12:53)
[2024-03-14] MEDS: dexAMETHasone 20MG/5ML VIAL IV PRN (12:53)
[2024-03-14] MEDS: FAMOTIDINE 20MG/2ML VIAL IVP PRN (12:53)
[2024-03-14] MEDS: diphenhydrAMINE 25MG CAP PO PRN (12:54)
[2024-03-14] MEDS: LevoFLOXacin 500 MG TABLET PO SCH (12:54)
[2024-03-14 18:51] LABS: HEMATOCRIT 27.4 % (42.0-52.0); HEMOGLOBIN 9.3 g/dl (13.5-17.5); MEAN CORPUSCULAR HEMOGLOBIN 30.5 pg (27.0-33.0); MEAN CORPUSCULAR HGB CONC 33.9 g/dl (32.0-36.5); MEAN CORPUSCULAR VOLUME 89.8 fl (80.0-96.0); RED BLOOD COUNT 3.05 10^6/uL (4.30-6.10); WHITE BLOOD COUNT 2.2 10^3/uL (4.0-10.0)
[2024-03-14 18:54] LABS: PLATELET COUNT, AUTOMATED 18 10^3/uL (150-450)
[2024-03-14] MEDS ORDERED: TAMSULOSIN 0.4 MG CAP PO SCH (21:00)
== END 2024-03-14 19:33 | disposition home or self-care (01) | DRG 811 ==
LOC: M ED 09:37 → M ED INP 17:02 → M PCU 20:19
PROVIDERS: ADMIT Internal Medicine Nephrology; ATTEND Hospitalist
PROC: 30233R1 Transfusion of Nonautologous Platelets into Peripheral Vein, Percutaneous Approach (ICD-10-PCS; principal; 2024-03-11)
PROC: 30233N1 Transfusion of Nonautologous Red Blood Cells into Peripheral Vein, Percutaneous Approach (ICD-10-PCS; 2024-03-11)
DX: D46.9 Myelodysplastic syndrome, unspecified (principal); D61.810 Antineoplastic chemotherapy induced pancytopenia; L03.213 Periorbital cellulitis; E87.20 Acidosis, unspecified; J32.9 Chronic sinusitis, unspecified; I48.0 Paroxysmal atrial fibrillation; I10 Essential (primary) hypertension; N40.0 Benign prostatic hyperplasia without lower urinary tract symptoms; Z92.21 Personal history of antineoplastic chemotherapy; Z79.899 Other long term (current) drug therapy; L40.8 Other psoriasis; Z86.16 Personal history of COVID-19; F32.A Depression, unspecified; F17.200 Nicotine dependence, unspecified, uncomplicated; R19.7 Diarrhea, unspecified; F41.9 Anxiety disorder, unspecified

== ENCOUNTER 2024-04-03 16:04 | Observation (INO) | payer MEDICARE, OTHER ==
[2024-04-03] VITALS (9 sets, daily range): BP systolic 112–140; BP diastolic 57–80; TEMP 96–98.9; O2SAT 97–100
[~2024-04-03] VITALS: Ht 188 cm; Wt 103.3 kg
[~2024-04-03 16:04] MED LIST changes: +ALPR0.25 PO; +METO1TAB87 PO; +POTA-298 PO; +REFR0.1D OU; +SODI88SP NARES; +UNRESOLVED CLARIFICATION ENTRY XX SCH
[2024-04-03] MEDS ORDERED: MOM 30ML SUSPENSION UDC PO PRN (18:05)
[2024-04-03] MEDS ORDERED: ACETAMINOPHEN TAB 650MG DOSE (2X325MG) PO PRN (18:05)
[2024-04-03] MEDS ORDERED: MAALOX 30 ML SUSP *UDC PO PRN (18:05)
[2024-04-03] MEDS: DOCUSATE SODIUM 100MG CAPSULE PO SCH (20:08)
[2024-04-03] MEDS ORDERED: FAMO1TAB11 PO (20:58)
[2024-04-03] MEDS ORDERED: METOPROLOL TART 25 MG TABLET PO SCH ×2 (21:00)
[2024-04-03] MEDS ORDERED: HOME MED LIST COMPLETE! XX SCH (21:00)
[2024-04-03] MEDS: FAMOTIDINE 20 MG TAB PO SCH (21:35)
[2024-04-03] MEDS: ACYCLOVIR 200 MG CAPSULE PO SCH (21:37)
[2024-04-03] MEDS: VORICONAZOLE 200MG TABLET (VFEND) PO SCH (21:37)
[2024-04-04 03:50] VITALS: BP 120/70; TEMP 96.9; O2SAT 100
[2024-04-04] MEDS: LevoFLOXacin 500 MG TABLET PO SCH (05:55)
[2024-04-04] MEDS: ALPRAZolam 0.25 MG TAB PO PRN (05:55)
[2024-04-04 06:27] LABS: BLOOD UREA NITROGEN 19 MG/DL (9-23); CALCIUM LEVEL 7.8 MG/DL (8.3-10.6); CARBON DIOXIDE LEVEL 24 MMOL/L (20-31); CHLORIDE LEVEL 112 MMOL/L (98-107); CREATININE FOR GFR 0.53 MG/DL (0.70-1.30); GLOMERULAR FILTRATION RATE > 60.0 (>49); GLUCOSE, FASTING 141 MG/DL (74-106); MAGNESIUM LEVEL 1.6 MG/DL (1.8-2.4); POTASSIUM SERUM 3.9 MMOL/L (3.5-5.1); SODIUM LEVEL 143 MMOL/L (136-145)
[2024-04-04] MEDS: MAGNESIUM OXIDE 400MG TAB (MAG-OX) PO ONE (07:28)
[2024-04-04 07:31] VITALS: BP 136/78; TEMP 96.8; O2SAT 97
[2024-04-04] MEDS ORDERED: ACYCLOVIR 200 MG CAPSULE PO SCH (09:00)
[2024-04-04] MEDS ORDERED: TAMSULOSIN 0.4 MG CAP PO SCH (09:00)
[2024-04-04] MEDS ORDERED: buPROPion **XL** TABLET 150MG (WELLBUTRIN XL) PO SCH (09:00)
[2024-04-08] MEDS ORDERED: METO1TAB87 PO (09:35)
[2024-04-12] MEDS ORDERED: ESSE250T PO (10:03)
[2024-04-12] MEDS ORDERED: ORAL0.1P MT (13:28)
== END 2024-04-04 08:11 | disposition home or self-care (01) ==
LOC: INTOOBSV 16:34 → M ED INP 16:34 → M PCU 16:40
PROVIDERS: ADMIT Internal Medicine; ATTEND Internal Medicine
DX: D46.9 Myelodysplastic syndrome, unspecified (principal); D61.810 Antineoplastic chemotherapy induced pancytopenia; D69.6 Thrombocytopenia, unspecified; I48.91 Unspecified atrial fibrillation; F32.A Depression, unspecified; N40.0 Benign prostatic hyperplasia without lower urinary tract symptoms; I71.40 Abdominal aortic aneurysm, without rupture, unspecified; L40.9 Psoriasis, unspecified; Z79.2 Long term (current) use of antibiotics; Z79.899 Other long term (current) drug therapy
CPT/HCPCS: 36415; 36430; 80048; 83735; G0378; P9040

== ENCOUNTER → 2024-04-04 | Outpatient (CLI) | payer MEDICARE, OTHER ==
[~2024-04-04] MED LIST changes: +ESSE250T PO; +FAMO1TAB11 PO; +LIDO1ADH10 TOP; +LIDOCAINE 1% MDV 20ML VIAL As Ordered ONE; +MAGN250T7 PO; +METO25TA4 PO; +ORAL0.1P MT; -UNRESOLVED CLARIFICATION ENTRY XX SCH
[2024-04-04 12:00] VITALS: BP 129/81; TEMP 96.4; O2SAT 99
[2024-04-04 12:15] VITALS: BP 132/83; O2SAT 100
[2024-04-04 12:34] VITALS: BP 126/74; O2SAT 99
[2024-04-04 13:25] VITALS: BP 115/60; O2SAT 98
[2024-04-04 13:30] LABS: HEMATOCRIT 24.2 % (42.0-52.0); HEMOGLOBIN 7.8 g/dl (13.5-17.5); LYMPH # 0.1 10^3/uL (1.5-5.0); MEAN CORPUSCULAR HEMOGLOBIN 29.8 pg (27.0-33.0); MEAN CORPUSCULAR HGB CONC 32.2 g/dl (32.0-36.5); MEAN CORPUSCULAR VOLUME 92.4 fl (80.0-96.0); MONO # 0.1 10^3/uL (0.0-0.8); MONO % 27.8 % (2.0-8.0); NEUTROPHILS % 16.6 % (36.0-66.0); RED BLOOD COUNT 2.62 10^6/uL (4.30-6.10)
[2024-04-04 13:54] LABS: PLATELET COUNT, AUTOMATED 13 10^3/uL (150-450); WHITE BLOOD COUNT 0.2 10^3/uL (4.0-10.0)
== END ==
LOC: M IRPRO 11:07
PROVIDERS: ATTEND Internal Medicine Medical Oncology
DX: D46.9 Myelodysplastic syndrome, unspecified (principal)
CPT/HCPCS: 36415; 38222; 77012; 85025; 85049; 85055; 88300; 88305; 88311; 88313; P9034

== ENCOUNTER 2024-04-06 06:39 | Outpatient (CLI) | payer OTHER ==
[~2024-04-06 06:39] MED LIST changes: -ESSE250T PO; -LIDO1ADH10 TOP; -LIDOCAINE 1% MDV 20ML VIAL As Ordered ONE; -MAGN250T7 PO; -METO25TA4 PO; -ORAL0.1P MT
[2024-04-06] MEDS ORDERED: NS 250 ML IV ONE (07:00)
[2024-04-06] MEDS: ACETAMINOPHEN TAB 650MG DOSE (2X325MG) PO ONE (07:05)
[2024-04-06] MEDS: diphenhydrAMINE 25MG CAP PO ONE (07:05)
[2024-04-06] MEDS: dexAMETHasone 20MG/5ML VIAL IV ONE (07:06)
[2024-04-06] MEDS: FAMOTIDINE 20MG/2ML VIAL IV ONE (07:06)
[2024-04-06 07:49] VITALS: BP 118/69; TEMP 97.6; O2SAT 98
[2024-04-06 08:05] VITALS: BP 120/76; TEMP 97.2; O2SAT 99
[2024-04-06 09:35] VITALS: BP 140/79; TEMP 97.5; O2SAT 98
[2024-04-08] MEDS ORDERED: METO1TAB87 PO (09:35)
== END 2024-04-06 09:42 | disposition home or self-care (01) ==
LOC: M INFU 06:39
PROVIDERS: ATTEND Internal Medicine Hematology & Oncology
DX: D46.9 Myelodysplastic syndrome, unspecified (principal)
CPT/HCPCS: 36430; J1100; P9040; S0028

== ENCOUNTER 2024-04-15 03:21 | Inpatient (IN) | payer MEDICARE, OTHER ==
[~2024-04-15] VITALS: Ht 188 cm; Wt 97.4 kg
[2024-04-15] VITALS (41 sets, daily range): BP systolic 96–123; BP diastolic 50–67; TEMP 98.4–102.3; O2SAT 91–98
[~2024-04-15 03:21] MED LIST changes: +ESSE250T PO; +ORAL0.1P MT
[2024-04-15 03:56] LABS: HEMATOCRIT 26.2 % (42.0-52.0); HEMOGLOBIN 8.6 g/dl (13.5-17.5); MEAN CORPUSCULAR HEMOGLOBIN 29.8 pg (27.0-33.0); MEAN CORPUSCULAR HGB CONC 32.8 g/dl (32.0-36.5); MEAN CORPUSCULAR VOLUME 90.7 fl (80.0-96.0); RED BLOOD COUNT 2.89 10^6/uL (4.30-6.10); WHITE BLOOD COUNT 4.1 10^3/uL (4.0-10.0)
[2024-04-15 04:06] LABS: PLATELET COUNT, AUTOMATED 3 10^3/uL (150-450)
[2024-04-15 04:07] LABS: PLATELET ESTIMATE MARKED DECREASE (NORMAL)
[2024-04-15 04:15] LABS: INR 1.24; PARTIAL THROMBOPLASTIN TIME 27.7 SECONDS (24.8-34.2); PROTHROMBIN TIME 15.2 SECONDS (12.5-14.5)
[2024-04-15 04:16] LABS: LYMPH % 23.7 % (24.0-44.0); MONO % 46.2 % (2.0-8.0); NEUTROPHILS % 14.4 % (36.0-66.0)
[2024-04-15 04:17] LABS: NEUTROPHILS # 0.6 10^3/uL (1.5-8.5)
[2024-04-15 04:18] LABS: MONO # 1.9 10^3/uL (0.0-0.8)
[2024-04-15 04:30] LABS: CK-MB VALUE MASS < 1.0 NG/ML (<3.6)
[2024-04-15 04:32] LABS: BLOOD UREA NITROGEN 15 MG/DL (9-23); CALCIUM LEVEL 7.8 MG/DL (8.3-10.6); CARBON DIOXIDE LEVEL 26 MMOL/L (20-31); CHLORIDE LEVEL 109 MMOL/L (98-107); CPK CREATINE PHOSPHOKINASE 17 U/L (46-171); CREATININE FOR GFR 0.77 MG/DL (0.70-1.30); GLOMERULAR FILTRATION RATE > 60.0 (>49); GLUCOSE, FASTING 96 MG/DL (74-106); MAGNESIUM LEVEL 1.6 MG/DL (1.8-2.4); MB/CK RELATIVE INDEX 5.88 (< OR =4); POTASSIUM SERUM 3.7 MMOL/L (3.5-5.1); SODIUM LEVEL 142 MMOL/L (136-145)
[2024-04-15 04:34] LABS: THYROID STIMULATING HORMONE 2.288 uIU/ML (0.55-4.78)
[2024-04-15] MEDS: MAG SULF 1GM/100ML (MAG RUN) 1 GM in IV 1 EA IV ONE ×2 (05:23→06:35)
[2024-04-15] MEDS ORDERED: VANCOMYCIN HCL 1,000 MG, VIAL MATE ADAPTER 1 EACH in D5W 250 ML IV SCH (07:20)
[2024-04-15] MEDS: PIPERACILLIN/TAZOBACTAM SOD 4.5 GM in D5W MINI-BAG PLUS 50 ML IV ONE (07:55)
[2024-04-15] MEDS: NS 500 ML IV ONE (08:00)
[2024-04-15 08:06] LABS: PROCALCITONIN 0.34 ng/ml
[2024-04-15] MEDS: ACETAMINOPHEN TAB 650MG DOSE (2X325MG) PO PRN (08:10)
[2024-04-15] MEDS ORDERED: METOPROLOL 5 MG/5 ML VIAL As Ordered ONE (08:13)
[2024-04-15] MEDS ORDERED: METO25TA4 PO (09:17)
[2024-04-15] MEDS ORDERED: LIDO1ADH10 TOP (09:17)
[2024-04-15] MEDS ORDERED: MAGN250T7 PO (09:17)
[2024-04-15] MEDS ORDERED: HOME MED LIST COMPLETE! XX SCH (09:20)
[2024-04-15] MEDS ORDERED: diltiaZEM 125 MG in NS 100 ML IV SCH (10:00)
[2024-04-15] MEDS: METOPROLOL TART 25 MG TABLET PO SCH ×2 (10:12→16:34)
[2024-04-15] MEDS: METOPROLOL 5 MG/5 ML VIAL IV STA (11:12)
[2024-04-15] MEDS: PANTOPRAZOLE 40MG TAB (PROTONIX) PO SCH (11:28)
[2024-04-15] MEDS: VANCOMYCIN HCL 1,000 MG, VIAL MATE ADAPTER 1 EACH in D5W 250 ML IV ONE ×2 (11:28→13:00)
[2024-04-15] MEDS: VORICONAZOLE 200MG TABLET (VFEND) PO SCH (11:29)
[2024-04-15] MEDS: ACYCLOVIR 200 MG CAPSULE PO SCH (11:29)
[2024-04-15] MEDS: FAMOTIDINE 20MG/2ML VIAL IV ONE (11:31)
[2024-04-15] MEDS: dexameTHASONE 20 MG IV PRIOR TO INFUSION IV ONE (11:31)
[2024-04-15] MEDS: diphenhydrAMINE 25MG PO PRIOR TO INFUSION PO ONE (11:45)
[2024-04-15] MEDS: diltiaZEM 125 MG in NS 100 ML IV SCH (11:54)
[2024-04-15] MEDS: ACETAMINOPHEN 650MG PO PRIOR TO INFUSION PO ONE (12:01)
[2024-04-15] MEDS ORDERED: METOPROLOL TART 25 MG TABLET PO SCH (16:00)
[2024-04-15] MEDS: FUROSEMIDE 20MG/2ML VIAL IV SCH (16:33)
[2024-04-15] MEDS ORDERED: METOPROLOL 5 MG/5 ML VIAL IV PRN (18:00)
[2024-04-15] MEDS: LOPERAMIDE 2 MG CAPLET PO PRN (18:05)
[2024-04-15] MEDS: FILGRASTIM 480 MCG/0.8 ML SYRINGE **SC ADMINISTRATION ONLY SC SCH (18:45)
[2024-04-15] MEDS ORDERED: ISOVUE-370 76% 100ML VIAL As Ordered ONE (19:35)
[2024-04-15] MEDS: VANCOMYCIN HCL 1,000 MG, VIAL MATE ADAPTER 1 EACH in D5W 250 ML IV SCH (19:59)
[2024-04-16] VITALS (67 sets, daily range): BP systolic 100–141; BP diastolic 54–96; TEMP 97.3–98.6; O2SAT 91–98
[2024-04-16 05:50] LABS: HEMATOCRIT 20.8 % (42.0-52.0); MEAN CORPUSCULAR HEMOGLOBIN 29.6 pg (27.0-33.0); MEAN CORPUSCULAR HGB CONC 32.7 g/dl (32.0-36.5); MEAN CORPUSCULAR VOLUME 90.4 fl (80.0-96.0); WHITE BLOOD COUNT 3.4 10^3/uL (4.0-10.0)
[2024-04-16 05:53] LABS: HEMOGLOBIN 6.8 g/dl (13.5-17.5); PLATELET COUNT, AUTOMATED 8 10^3/uL (150-450)
[2024-04-16 06:13] LABS: ALKALINE PHOSPHATASE 65 U/L (46-116); ALT/SGPT 29 U/L (7.0-40); AST/SGOT 39 U/L (<34); BILIRUBIN,TOTAL 0.6 MG/DL (0.3-1.2); BLOOD UREA NITROGEN 15 MG/DL (9-23); CALCIUM LEVEL 7.6 MG/DL (8.3-10.6); CARBON DIOXIDE LEVEL 26 MMOL/L (20-31); CHLORIDE LEVEL 109 MMOL/L (98-107); GLOMERULAR FILTRATION RATE > 60.0 (>49); GLUCOSE, FASTING 226 MG/DL (74-106); MAGNESIUM LEVEL 1.8 MG/DL (1.8-2.4); POTASSIUM SERUM 3.5 MMOL/L (3.5-5.1); SODIUM LEVEL 143 MMOL/L (136-145); TOTAL PROTEIN 4.3 G/DL (5.7-8.2)
[2024-04-16] MEDS: FUROSEMIDE 20MG/2ML VIAL IV SCH (08:32)
[2024-04-16] MEDS: dexAMETHasone 20MG/5ML VIAL IV STA (08:34)
[2024-04-16] MEDS: ACETAMINOPHEN TAB 650MG DOSE (2X325MG) PO STA (08:34)
[2024-04-16] MEDS: diphenhydrAMINE 25MG CAP PO STA (08:35)
[2024-04-16] MEDS: dilTIAZem 30 MG TAB PO SCH (11:49)
[2024-04-16] MEDS: PIPERACILLIN/TAZOBACTAM SOD 4.5 GM in D5W MINI-BAG PLUS 50 ML IV SCH (16:35)
[2024-04-16 16:55] LABS: HEMATOCRIT 26.7 % (42.0-52.0); MEAN CORPUSCULAR HEMOGLOBIN 30.2 pg (27.0-33.0); MEAN CORPUSCULAR HGB CONC 33.3 g/dl (32.0-36.5); MEAN CORPUSCULAR VOLUME 90.5 fl (80.0-96.0); RED BLOOD COUNT 2.95 10^6/uL (4.30-6.10); WHITE BLOOD COUNT 4.7 10^3/uL (4.0-10.0)
[2024-04-16 17:33] LABS: HEMOGLOBIN 8.9 g/dl (13.5-17.5); PLATELET COUNT, AUTOMATED 8 10^3/uL (150-450)
[2024-04-16 17:37] LABS: ATYPICAL LYMPH 7 % (0-5); BASOPHILS 1 % (0-1); LYMPHOCYTES 31 % (16-44); METAMYELOCYTES 4 % (0-0); MONOCYTES 21 % (0-5); NEUTROPHILS 33 % (28-66); PLATELET ESTIMATE MARKED DECREASE (NORMAL)
[2024-04-17] VITALS (24 sets, daily range): BP systolic 104–147; BP diastolic 59–87; TEMP 97.2–99; O2SAT 96–98
[2024-04-17 05:04] LABS: BASO % 0.1 % (0.0-1.0); HEMOGLOBIN 9.1 g/dl (13.5-17.5); LYMPH # 1.4 10^3/uL (1.5-5.0); MEAN CORPUSCULAR HEMOGLOBIN 30.1 pg (27.0-33.0); MEAN CORPUSCULAR HGB CONC 33.7 g/dl (32.0-36.5); MEAN CORPUSCULAR VOLUME 89.4 fl (80.0-96.0); MONO # 1.5 10^3/uL (0.0-0.8); MONO % 17.8 % (2.0-8.0); NEUTROPHILS # 5.3 10^3/uL (1.5-8.5); NEUTROPHILS % 65.1 % (36.0-66.0); RED BLOOD COUNT 3.02 10^6/uL (4.30-6.10); WHITE BLOOD COUNT 8.2 10^3/uL (4.0-10.0)
[2024-04-17 05:05] LABS: PLATELET COUNT, AUTOMATED 8 10^3/uL (150-450)
[2024-04-17 05:16] LABS: BLOOD UREA NITROGEN 15 MG/DL (9-23); CALCIUM LEVEL 7.6 MG/DL (8.3-10.6); CARBON DIOXIDE LEVEL 25 MMOL/L (20-31); CHLORIDE LEVEL 109 MMOL/L (98-107); CREATININE FOR GFR 0.65 MG/DL (0.70-1.30); GLOMERULAR FILTRATION RATE > 60.0 (>49); GLUCOSE, FASTING 163 MG/DL (74-106); POTASSIUM SERUM 3.3 MMOL/L (3.5-5.1); SODIUM LEVEL 143 MMOL/L (136-145)
[2024-04-17 06:47] LABS: MAGNESIUM LEVEL 1.6 MG/DL (1.8-2.4); PHOSPHORUS LEVEL 2.3 MG/DL (2.4-5.1)
[2024-04-17] MEDS: MAG SULF 1GM/100ML (MAG RUN) 1 GM in IV 1 EA IV ONE (08:06)
[2024-04-17] MEDS: POTASSIUM CHLORIDE 10MEQ SR TABLET PO SCH (09:16)
[2024-04-17] MEDS: dexAMETHasone 20MG/5ML VIAL IV PRN (11:30)
[2024-04-17] MEDS: diphenhydrAMINE 50MG/ML VIAL IV PRN (11:31)
[2024-04-17] MEDS: ACETAMINOPHEN TAB 650MG DOSE (2X325MG) PO PRN (11:32)
[2024-04-17] MEDS ORDERED: VANCOMYCIN HCL 750 MG, VIAL MATE ADAPTER 1 EACH in D5W 250 ML IV SCH (12:00)
[2024-04-17 12:10] LABS: VANCOMYCIN LEVEL TROUGH 16.5 UG/ML (10.0-20.0)
[2024-04-17 12:38] LABS: BLOOD UREA NITROGEN 19 MG/DL (9-23); CALCIUM LEVEL 7.6 MG/DL (8.3-10.6); CARBON DIOXIDE LEVEL 24 MMOL/L (20-31); CHLORIDE LEVEL 108 MMOL/L (98-107); CREATININE FOR GFR 0.74 MG/DL (0.70-1.30); GLOMERULAR FILTRATION RATE > 60.0 (>49); GLUCOSE, FASTING 207 MG/DL (74-106); MAGNESIUM LEVEL 1.8 MG/DL (1.8-2.4); POTASSIUM SERUM 3.1 MMOL/L (3.5-5.1); SODIUM LEVEL 142 MMOL/L (136-145)
[2024-04-17] MEDS: diphenhydrAMINE 50MG/ML VIAL IV ONE (15:08)
[2024-04-17] MEDS: VANCOMYCIN HCL 750 MG, VIAL MATE ADAPTER 1 EACH in D5W 250 ML IV SCH (19:07)
[2024-04-17] MEDS: LIDOCAINE 5% (LIDODERM) PATCH TD SCH (20:10)
[2024-04-18] VITALS (7 sets, daily range): BP systolic 111–142; BP diastolic 66–77; TEMP 96.8–98.1; O2SAT 92–97
[2024-04-18 04:32] LABS: HEMATOCRIT 28.5 % (42.0-52.0); HEMOGLOBIN 9.2 g/dl (13.5-17.5); MEAN CORPUSCULAR HEMOGLOBIN 29.6 pg (27.0-33.0); MEAN CORPUSCULAR HGB CONC 32.3 g/dl (32.0-36.5); MEAN CORPUSCULAR VOLUME 91.6 fl (80.0-96.0); RED BLOOD COUNT 3.11 10^6/uL (4.30-6.10)
[2024-04-18 05:01] LABS: PLATELET COUNT, AUTOMATED 19 10^3/uL (150-450)
[2024-04-18 05:06] LABS: BLOOD UREA NITROGEN 22 MG/DL (9-23); CALCIUM LEVEL 7.5 MG/DL (8.3-10.6); CARBON DIOXIDE LEVEL 25 MMOL/L (20-31); CHLORIDE LEVEL 113 MMOL/L (98-107); CREATININE FOR GFR 0.77 MG/DL (0.70-1.30); GLOMERULAR FILTRATION RATE > 60.0 (>49); GLUCOSE, FASTING 133 MG/DL (74-106); MAGNESIUM LEVEL 1.9 MG/DL (1.8-2.4); SODIUM LEVEL 146 MMOL/L (136-145)
[2024-04-18 09:57] LABS: EOSINOPHILS 1 % (0-3); LYMPHOCYTES 16 % (16-44); METAMYELOCYTES 13 % (0-0); MONOCYTES 39 % (0-5); MYELOCYTES 6 % (0-0); NEUTROPHILS 3 % (28-66)
[2024-04-18 10:01] LABS: ANISOCYTOSIS 1+; PLATELET ESTIMATE MARKED DECREASE (NORMAL); POLYCHROMASIA 1+
[2024-04-18 10:04] LABS: BLAST CELLS 22 % (0-0)
[2024-04-18] MEDS: ALPRAZolam 0.25 MG TAB PO PRN (12:19)
[2024-04-19] VITALS (16 sets, daily range): BP systolic 112–167; BP diastolic 57–78; TEMP 95.9–97.6; O2SAT 93–98
[2024-04-19 05:12] LABS: BASO % 0.1 % (0.0-1.0); HEMATOCRIT 27.4 % (42.0-52.0); HEMOGLOBIN 8.8 g/dl (13.5-17.5); LYMPH % 11.7 % (24.0-44.0); MEAN CORPUSCULAR HEMOGLOBIN 29.3 pg (27.0-33.0); MEAN CORPUSCULAR HGB CONC 32.1 g/dl (32.0-36.5); MEAN CORPUSCULAR VOLUME 91.3 fl (80.0-96.0); MONO % 48.5 % (2.0-8.0); NEUTROPHILS # 2.2 10^3/uL (1.5-8.5); NEUTROPHILS % 24.5 % (36.0-66.0); WHITE BLOOD COUNT 8.9 10^3/uL (4.0-10.0)
[2024-04-19 05:18] LABS: MONO # 4.3 10^3/uL (0.0-0.8)
[2024-04-19 05:19] LABS: PLATELET COUNT, AUTOMATED 5 10^3/uL (150-450)
[2024-04-19 05:26] LABS: BLOOD UREA NITROGEN 29 MG/DL (9-23); CALCIUM LEVEL 7.4 MG/DL (8.3-10.6); CARBON DIOXIDE LEVEL 25 MMOL/L (20-31); CHLORIDE LEVEL 113 MMOL/L (98-107); CREATININE FOR GFR 0.69 MG/DL (0.70-1.30); GLOMERULAR FILTRATION RATE > 60.0 (>49); GLUCOSE, FASTING 95 MG/DL (74-106); POTASSIUM SERUM 3.4 MMOL/L (3.5-5.1); SODIUM LEVEL 145 MMOL/L (136-145)
[2024-04-19] MEDS: POTASSIUM CHLORIDE 10% LIQ 20MEQ/15ML UDC PO ONE (06:09)
[2024-04-19] MEDS ORDERED: FAMOTIDINE IV BAG 20 MG in IV 1 EA IV PRN (08:20)
[2024-04-19] MEDS: diphenhydrAMINE 50MG/ML VIAL IV PRN ×2 (09:06→22:09)
[2024-04-19] MEDS: FAMOTIDINE 20MG/2ML VIAL IV PRN ×2 (09:06→22:09)
[2024-04-19] MEDS: dexAMETHasone 20MG/5ML VIAL IV STA (09:11)
[2024-04-19 14:46] LABS: HEMATOCRIT 26.8 % (42.0-52.0); HEMOGLOBIN 8.8 g/dl (13.5-17.5); MEAN CORPUSCULAR HEMOGLOBIN 29.9 pg (27.0-33.0); MEAN CORPUSCULAR HGB CONC 32.8 g/dl (32.0-36.5); MEAN CORPUSCULAR VOLUME 91.2 fl (80.0-96.0); RED BLOOD COUNT 2.94 10^6/uL (4.30-6.10); WHITE BLOOD COUNT 4.6 10^3/uL (4.0-10.0)
[2024-04-19 14:54] LABS: PLATELET COUNT, AUTOMATED 5 10^3/uL (150-450)
[2024-04-19 18:23] LABS: FUNGITELL INTERPRETATION NEGATIVE (NEGATIVE); FUNGITELL, SERUM 39 pg/mL (<60)
[2024-04-19] MEDS: ACETAMINOPHEN TAB 650MG DOSE (2X325MG) PO ONE (18:51)
[2024-04-19] MEDS: dexAMETHasone 20MG/5ML VIAL IV ONE (18:52)
[2024-04-19] MEDS: diphenhydrAMINE 50MG/ML VIAL IV ONE (18:52)
[2024-04-19] MEDS: dexAMETHasone 20MG/5ML VIAL IV PRN (22:09)
[2024-04-20] VITALS (11 sets, daily range): BP systolic 117–162; BP diastolic 62–80; TEMP 97–98.1; O2SAT 95–97
[2024-04-20 01:29] LABS: HEMATOCRIT 25.1 % (42.0-52.0); HEMOGLOBIN 8.2 g/dl (13.5-17.5); MEAN CORPUSCULAR HEMOGLOBIN 29.8 pg (27.0-33.0); MEAN CORPUSCULAR HGB CONC 32.7 g/dl (32.0-36.5); MEAN CORPUSCULAR VOLUME 91.3 fl (80.0-96.0); RED BLOOD COUNT 2.75 10^6/uL (4.30-6.10); WHITE BLOOD COUNT 3.8 10^3/uL (4.0-10.0)
[2024-04-20 01:38] LABS: PLATELET COUNT, AUTOMATED 9 10^3/uL (150-450)
[2024-04-20 06:42] LABS: HEMATOCRIT 24.6 % (42.0-52.0); HEMOGLOBIN 8.1 g/dl (13.5-17.5); LYMPH # 0.7 10^3/uL (1.5-5.0); LYMPH % 20.6 % (24.0-44.0); MEAN CORPUSCULAR HGB CONC 32.9 g/dl (32.0-36.5); MEAN CORPUSCULAR VOLUME 91.1 fl (80.0-96.0); MONO # 1.7 10^3/uL (0.0-0.8); MONO % 47.6 % (2.0-8.0); NEUTROPHILS % 13.7 % (36.0-66.0); WHITE BLOOD COUNT 3.5 10^3/uL (4.0-10.0)
[2024-04-20 06:46] LABS: NEUTROPHILS # 0.5 10^3/uL (1.5-8.5); PLATELET COUNT, AUTOMATED 10 10^3/uL (150-450)
[2024-04-20 07:18] LABS: BLOOD UREA NITROGEN 21 MG/DL (9-23); CALCIUM LEVEL 6.9 MG/DL (8.3-10.6); CARBON DIOXIDE LEVEL 25 MMOL/L (20-31); CHLORIDE LEVEL 112 MMOL/L (98-107); GLOMERULAR FILTRATION RATE > 60.0 (>49); GLUCOSE, FASTING 222 MG/DL (74-106); MAGNESIUM LEVEL 1.9 MG/DL (1.8-2.4); POTASSIUM SERUM 3.9 MMOL/L (3.5-5.1); SODIUM LEVEL 145 MMOL/L (136-145)
[2024-04-20] MEDS: METOPROLOL TART 25 MG TABLET PO SCH (08:09)
[2024-04-20 17:07] LABS: HEMATOCRIT 23.6 % (42.0-52.0); HEMOGLOBIN 7.9 g/dl (13.5-17.5); LYMPH # 0.7 10^3/uL (1.5-5.0); LYMPH % 24.7 % (24.0-44.0); MEAN CORPUSCULAR HGB CONC 33.5 g/dl (32.0-36.5); MEAN CORPUSCULAR VOLUME 89.7 fl (80.0-96.0); MONO # 1.2 10^3/uL (0.0-0.8); MONO % 41.3 % (2.0-8.0); NEUTROPHILS % 9.7 % (36.0-66.0); RED BLOOD COUNT 2.63 10^6/uL (4.30-6.10); WHITE BLOOD COUNT 2.9 10^3/uL (4.0-10.0)
[2024-04-20 17:12] LABS: NEUTROPHILS # 0.3 10^3/uL (1.5-8.5); PLATELET COUNT, AUTOMATED 11 10^3/uL (150-450)
[2024-04-20] MEDS: METOPROLOL TART 12.5 MG PER 1/2 TAB PO SCH (20:27)
[2024-04-21] VITALS (14 sets, daily range): BP systolic 128–154; BP diastolic 65–82; TEMP 96.4–98.8; O2SAT 96–99
[2024-04-21 07:00] LABS: HEMATOCRIT 23.5 % (42.0-52.0); HEMOGLOBIN 7.8 g/dl (13.5-17.5); MEAN CORPUSCULAR HGB CONC 33.2 g/dl (32.0-36.5); MEAN CORPUSCULAR VOLUME 90.4 fl (80.0-96.0); WHITE BLOOD COUNT 2.8 10^3/uL (4.0-10.0)
[2024-04-21 07:03] LABS: PLATELET COUNT, AUTOMATED 5 10^3/uL (150-450)
[2024-04-21 07:33] LABS: BLOOD UREA NITROGEN 22 MG/DL (9-23); CALCIUM LEVEL 7.2 MG/DL (8.3-10.6); CARBON DIOXIDE LEVEL 25 MMOL/L (20-31); CHLORIDE LEVEL 109 MMOL/L (98-107); CREATININE FOR GFR 0.53 MG/DL (0.70-1.30); GLOMERULAR FILTRATION RATE > 60.0 (>49); GLUCOSE, FASTING 186 MG/DL (74-106); MAGNESIUM LEVEL 1.9 MG/DL (1.8-2.4); POTASSIUM SERUM 3.8 MMOL/L (3.5-5.1); SODIUM LEVEL 142 MMOL/L (136-145)
[2024-04-21 07:58] LABS: LYMPHOCYTES 24 % (16-44); METAMYELOCYTES 4 % (0-0); MONOCYTES 35 % (0-5); MYELOCYTES 6 % (0-0); NEUTROPHILS 12 % (28-66)
[2024-04-21 08:01] LABS: ANISOCYTOSIS 1+; BLAST CELLS 18 % (0-0); PLATELET ESTIMATE MARKED DECREASE (NORMAL); POIKILOCYTOSIS 1+; POLYCHROMASIA 1+
[2024-04-21] MEDS ORDERED: FILGRASTIM 480 MCG/0.8 ML SYRINGE **SC ADMINISTRATION ONLY SC SCH (09:00)
[2024-04-21 17:19] LABS: HEMATOCRIT 21.4 % (42.0-52.0); HEMOGLOBIN 7.1 g/dl (13.5-17.5); LYMPH # 0.5 10^3/uL (1.5-5.0); MEAN CORPUSCULAR HEMOGLOBIN 30.1 pg (27.0-33.0); MEAN CORPUSCULAR HGB CONC 33.2 g/dl (32.0-36.5); MEAN CORPUSCULAR VOLUME 90.7 fl (80.0-96.0); MONO # 0.7 10^3/uL (0.0-0.8); MONO % 40.6 % (2.0-8.0); NEUTROPHILS # 0.2 10^3/uL (1.5-8.5); NEUTROPHILS % 9.4 % (36.0-66.0); PLATELET COUNT, AUTOMATED 18 10^3/uL (150-450); RED BLOOD COUNT 2.36 10^6/uL (4.30-6.10); WHITE BLOOD COUNT 1.8 10^3/uL (4.0-10.0)
[2024-04-21] MEDS ORDERED: FUROSEMIDE 20MG/2ML VIAL IV ONE (18:25)
[2024-04-21] MEDS: FILGRASTIM 480 MCG/0.8 ML SYRINGE **SC ADMINISTRATION ONLY SC SCH (20:43)
[2024-04-22] VITALS (10 sets, daily range): BP systolic 106–155; BP diastolic 56–80; TEMP 96.8–97.3; O2SAT 94–97
[2024-04-22] MEDS: FUROSEMIDE 20MG/2ML VIAL IV ONE (02:50)
[2024-04-22 06:05] LABS: HEMATOCRIT 25.2 % (42.0-52.0); HEMOGLOBIN 8.4 g/dl (13.5-17.5); LYMPH # 0.5 10^3/uL (1.5-5.0); LYMPH % 11.6 % (24.0-44.0); MEAN CORPUSCULAR HEMOGLOBIN 29.5 pg (27.0-33.0); MEAN CORPUSCULAR HGB CONC 33.3 g/dl (32.0-36.5); MEAN CORPUSCULAR VOLUME 88.4 fl (80.0-96.0); MONO # 2.4 10^3/uL (0.0-0.8); MONO % 52.6 % (2.0-8.0); NEUTROPHILS # 1.6 10^3/uL (1.5-8.5); NEUTROPHILS % 35.8 % (36.0-66.0); RED BLOOD COUNT 2.85 10^6/uL (4.30-6.10); WHITE BLOOD COUNT 4.5 10^3/uL (4.0-10.0)
[2024-04-22 06:08] LABS: PLATELET COUNT, AUTOMATED 14 10^3/uL (150-450)
[2024-04-22 06:26] LABS: BLOOD UREA NITROGEN 21 MG/DL (9-23); CALCIUM LEVEL 7.6 MG/DL (8.3-10.6); CARBON DIOXIDE LEVEL 29 MMOL/L (20-31); CHLORIDE LEVEL 110 MMOL/L (98-107); GLOMERULAR FILTRATION RATE > 60.0 (>49); GLUCOSE, FASTING 129 MG/DL (74-106); MAGNESIUM LEVEL 1.7 MG/DL (1.8-2.4); POTASSIUM SERUM 3.3 MMOL/L (3.5-5.1); SODIUM LEVEL 147 MMOL/L (136-145)
[2024-04-22] MEDS: MAG SULF 1GM/100ML (MAG RUN) 1 GM in IV 1 EA IV ONE (07:56)
[2024-04-22] MEDS: POTASSIUM CHLORIDE 10MEQ SR TABLET PO ONE (07:58)
[2024-04-22 17:06] LABS: BLOOD UREA NITROGEN 18 MG/DL (9-23); CALCIUM LEVEL 7.7 MG/DL (8.3-10.6); CARBON DIOXIDE LEVEL 27 MMOL/L (20-31); CHLORIDE LEVEL 111 MMOL/L (98-107); GLOMERULAR FILTRATION RATE > 60.0 (>49); GLUCOSE, FASTING 138 MG/DL (74-106); POTASSIUM SERUM 3.2 MMOL/L (3.5-5.1); SODIUM LEVEL 144 MMOL/L (136-145)
[2024-04-23] VITALS (20 sets, daily range): BP systolic 82–127; BP diastolic 52–75; TEMP 97.2–100.5; O2SAT 88–97
[2024-04-23 01:40] LABS: BLOOD UREA NITROGEN 18 MG/DL (9-23); CALCIUM LEVEL 7.8 MG/DL (8.3-10.6); CARBON DIOXIDE LEVEL 26 MMOL/L (20-31); CHLORIDE LEVEL 110 MMOL/L (98-107); CREATININE FOR GFR 0.74 MG/DL (0.70-1.30); GLOMERULAR FILTRATION RATE > 60.0 (>49); GLUCOSE, FASTING 83 MG/DL (74-106); MAGNESIUM LEVEL 1.6 MG/DL (1.8-2.4); SODIUM LEVEL 144 MMOL/L (136-145)
[2024-04-23] MEDS: MAG SULF 1GM/100ML (MAG RUN) 1 GM in IV 1 EA IV SCH (02:27)
[2024-04-23] MEDS: POTASSIUM CHLORIDE 10MEQ SR TABLET PO ONE (02:28)
[2024-04-23 06:36] LABS: BASO % 0.2 % (0.0-1.0); HEMATOCRIT 26.6 % (42.0-52.0); HEMOGLOBIN 8.8 g/dl (13.5-17.5); LYMPH # 3.3 10^3/uL (1.5-5.0); LYMPH % 25.5 % (24.0-44.0); MEAN CORPUSCULAR HEMOGLOBIN 29.1 pg (27.0-33.0); MEAN CORPUSCULAR HGB CONC 33.1 g/dl (32.0-36.5); MEAN CORPUSCULAR VOLUME 88.1 fl (80.0-96.0); MONO % 26.8 % (2.0-8.0); NEUTROPHILS # 4.3 10^3/uL (1.5-8.5); NEUTROPHILS % 33.7 % (36.0-66.0); RED BLOOD COUNT 3.02 10^6/uL (4.30-6.10); WHITE BLOOD COUNT 12.8 10^3/uL (4.0-10.0)
[2024-04-23 06:46] LABS: MONO # 3.4 10^3/uL (0.0-0.8); PLATELET COUNT, AUTOMATED 12 10^3/uL (150-450)
[2024-04-23 06:53] LABS: BLOOD UREA NITROGEN 16 MG/DL (9-23); CARBON DIOXIDE LEVEL 27 MMOL/L (20-31); CHLORIDE LEVEL 110 MMOL/L (98-107); CREATININE FOR GFR 0.72 MG/DL (0.70-1.30); GLOMERULAR FILTRATION RATE > 60.0 (>49); GLUCOSE, FASTING 80 MG/DL (74-106); POTASSIUM SERUM 3.3 MMOL/L (3.5-5.1); SODIUM LEVEL 147 MMOL/L (136-145)
[2024-04-23] MEDS: KCL 10MEQ/100ML SWI (KRUN) 10 MEQ in IV 1 EA IV SCH (09:17)
[2024-04-23] MEDS: POTASSIUM CHLORIDE 10MEQ SR TABLET PO SCH (09:17)
[2024-04-23] MEDS: METOPROLOL 5 MG/5 ML VIAL IV STA ×3 (09:18→10:52)
[2024-04-23] MEDS: MORPHINE 2 MG/ML 1ML VIAL IV PRN (14:02)
[2024-04-24] VITALS (35 sets, daily range): BP systolic 81–127; BP diastolic 46–61; TEMP 100–105.1; O2SAT 93–96
[2024-04-24] MEDS: ACETAMINOPHEN *IV* 1,000 MG in IV 1 EA IV ONE (01:40)
[2024-04-24 01:54] LABS: ABG BASE EXCESS -2.1 (-2.0-2.0); ABG HCO3 19.3 MMOL/L (22.0-26.0); ABG O2 SATURATION 92.6 % (95.0-99.0); ABG PARTIAL PRESSURE CO2 23.2 mmHg (35.0-45.0); ABG PARTIAL PRESSURE O2 60.9 mmHg (75.0-100.0); ABG STANDARD HCO3 22.6 MMOL/L. (22.0-26.0); ABG pH (ARTERIAL) 7.537 UNITS (7.350-7.450)
[2024-04-24] MEDS ORDERED: VANCOMYCIN HCL 1,000 MG, VIAL MATE ADAPTER 1 EACH in NS 250 ML IV SCH (02:00)
[2024-04-24 02:31] LABS: HEMATOCRIT 28.9 % (42.0-52.0); HEMOGLOBIN 9.4 g/dl (13.5-17.5); MEAN CORPUSCULAR HEMOGLOBIN 29.5 pg (27.0-33.0); MEAN CORPUSCULAR HGB CONC 32.5 g/dl (32.0-36.5); MEAN CORPUSCULAR VOLUME 90.6 fl (80.0-96.0); RED BLOOD COUNT 3.19 10^6/uL (4.30-6.10)
[2024-04-24 02:35] LABS: PLATELET COUNT, AUTOMATED 18 10^3/uL (150-450); WHITE BLOOD COUNT 37.7 10^3/uL (4.0-10.0)
[2024-04-24] MEDS: NS 1,000 ML IV ONE (02:44)
[2024-04-24 02:46] LABS: INR 2.13; PARTIAL THROMBOPLASTIN TIME 40.2 SECONDS (24.8-34.2)
[2024-04-24 02:49] LABS: URIC ACID 9.5 MG/DL (3.7-9.2)
[2024-04-24] MEDS: VANCOMYCIN HCL 1,000 MG, VIAL MATE ADAPTER 1 EACH in D5W 250 ML IV ONE (03:00)
[2024-04-24 03:03] LABS: BLOOD UREA NITROGEN 22 MG/DL (9-23); CALCIUM LEVEL 7.8 MG/DL (8.3-10.6); CARBON DIOXIDE LEVEL 23 MMOL/L (20-31); CHLORIDE LEVEL 107 MMOL/L (98-107); CREATININE FOR GFR 1.37 MG/DL (0.70-1.30); GLOMERULAR FILTRATION RATE 55.5 (>49); GLUCOSE, FASTING 87 MG/DL (74-106); LDH LACTATE DEHYDROGENASE > 4500 U/L (120-246); PHOSPHORUS LEVEL 2.5 MG/DL (2.4-5.1); POTASSIUM SERUM 4.3 MMOL/L (3.5-5.1); SODIUM LEVEL 140 MMOL/L (136-145)
[2024-04-24] MEDS: VANCOMYCIN HCL 750 MG, VIAL MATE ADAPTER 1 EACH in D5W 250 ML IV SCH (04:25)
[2024-04-24] MEDS: NOREPINEPHRINE 4MG IN D5 250ML 4 MG in IV 1 EA IV SCH (05:16)
[2024-04-24 06:58] LABS: BASO # 0.1 10^3/uL (0.0-0.2); BASO % 0.1 % (0.0-1.0); HEMATOCRIT 25.8 % (42.0-52.0); HEMOGLOBIN 8.5 g/dl (13.5-17.5); LYMPH # 4.9 10^3/uL (1.5-5.0); LYMPH % 10.1 % (24.0-44.0); MEAN CORPUSCULAR HEMOGLOBIN 29.8 pg (27.0-33.0); MEAN CORPUSCULAR HGB CONC 32.9 g/dl (32.0-36.5); MEAN CORPUSCULAR VOLUME 90.5 fl (80.0-96.0); MONO % 41.5 % (2.0-8.0); NEUTROPHILS # 23.4 10^3/uL (1.5-8.5); NEUTROPHILS % 48.3 % (36.0-66.0); RED BLOOD COUNT 2.85 10^6/uL (4.30-6.10)
[2024-04-24] MEDS: LR 1,000 ML IV SCH (06:58)
[2024-04-24 07:02] LABS: WHITE BLOOD COUNT 48.4 10^3/uL (4.0-10.0)
[2024-04-24 07:03] LABS: MONO # 20.1 10^3/uL (0.0-0.8); PLATELET COUNT, AUTOMATED 20 10^3/uL (150-450)
[2024-04-24 07:16] LABS: ATYPICAL LYMPH 17 % (0-5); BLAST CELLS 2 % (0-0); LYMPHOCYTES 20 % (16-44); MONOCYTES 56 % (0-5); NEUTROPHILS 4 % (28-66)
[2024-04-24 07:17] LABS: ANISOCYTOSIS 2+; PLATELET ESTIMATE MARKED DECREASE (NORMAL)
[2024-04-24 07:18] LABS: MICROCYTOSIS 1+; POIKILOCYTOSIS 1+
[2024-04-24 07:19] LABS: OVALOCYTES 1+
[2024-04-24 07:20] LABS: C REACTIVE PROTEIN QUANTITATIV 25.7 MG/DL (<1.0)
[2024-04-24 07:21] LABS: ALBUMIN 2.1 G/DL (3.2-5.2); BILIRUBIN,TOTAL 1.1 MG/DL (0.3-1.2); CALCIUM LEVEL 7.4 MG/DL (8.3-10.6); CREATININE FOR GFR 1.62 MG/DL (0.70-1.30); GLOMERULAR FILTRATION RATE 45.8 (>49); MAGNESIUM LEVEL 1.9 MG/DL (1.8-2.4); POTASSIUM SERUM 3.7 MMOL/L (3.5-5.1); TOTAL PROTEIN 4.4 G/DL (5.7-8.2)
[2024-04-24] MEDS ORDERED: FUROSEMIDE 40MG/4ML VIAL IV SCH (09:00)
== END 2024-04-24 07:58 | disposition short-term general hospital (02) | DRG 834 ==
LOC: M ED 03:21 → EDBD 03:21 → M ED INP 07:35 → M ICU 10:21 → M PCU 04-19 16:44 → M ICU 04-24 03:58
PROVIDERS: ADMIT Hospitalist; ATTEND Internal Medicine
PROC: 30233R1 Transfusion of Nonautologous Platelets into Peripheral Vein, Percutaneous Approach (ICD-10-PCS; principal; 2024-04-15)
DX: C92.00 Acute myeloblastic leukemia, not having achieved remission (principal); J18.9 Pneumonia, unspecified organism; D61.810 Antineoplastic chemotherapy induced pancytopenia; G93.41 Metabolic encephalopathy; J96.91 Respiratory failure, unspecified with hypoxia; E88.3 Tumor lysis syndrome; L03.811 Cellulitis of head [any part, except face]; D61.818 Other pancytopenia; N17.9 Acute kidney failure, unspecified; D46.9 Myelodysplastic syndrome, unspecified; D70.9 Neutropenia, unspecified; D69.6 Thrombocytopenia, unspecified; I10 Essential (primary) hypertension; J32.9 Chronic sinusitis, unspecified; R50.81 Fever presenting with conditions classified elsewhere; I48.0 Paroxysmal atrial fibrillation; E83.42 Hypomagnesemia; R31.9 Hematuria, unspecified; Z79.899 Other long term (current) drug therapy; Z92.21 Personal history of antineoplastic chemotherapy; E87.6 Hypokalemia